=== PATIENT | male | born 1950 | race Caucasian/White ===

== ENCOUNTER → 2016-12-13 | Day surgery (SDC) | payer OTHER ==
--- NOTE | 2016-12-10 17:05 | GHP ---
[f rep st] PREOP HISTORY AND PHYSICAL DATE OF ADMISSION: 12/13/2016 Date of planned procedure is December 13, 2016. PLANNED PROCEDURE: A left total knee arthroplasty. HISTORY OF PRESENT ILLNESS: This patient is a 66-year-old male with slowly worsening bilateral knee pain and varus malalignment who has failed now conservative management, and decision had been made to proceed with total knee arthroplasties left followed by the right. PAST MEDICAL HISTORY: Gout, hypertension, diabetes, high cholesterol, sleep apnea. SOCIAL HISTORY: He does not smoke. Occasional alcohol use. , lives with others. REVIEW OF SYSTEMS: No chest pain. He does get shortness of breath with exertion. Otherwise review of systems unremarkable. PHYSICAL EXAM: VITAL SIGNS: Today in the office blood pressure is 146/88, heart rate is 88, respir atory rate is 18 on room air. HEENT: Normocephalic, atraumatic. Extraocular muscles intact. NECK : Supple. There is no lymphadenopathy. No JVD. CHEST: Clear to auscultation. CARDIOVASCULAR: Regular rate and rhythm. ABDOMEN: Obese, soft, nontender, nondistended. EXTREMITIES: Focusing on the knees. Varus alignment of both knees. He is tender to palpation along the medial joint lines. There is no effusion. He lacks about 5 degrees of full extension. Flexes to 120 degrees. 1+ Lac hman's with firm endpoints. Negative posterior drawers. Calves are soft. He has 1+ dorsalis pedis and posterior tibial pulses. IMAGING: X-rays of bilateral knees show severe tricompartment degenerative joint disease. ASSESSMENT: Tricompartment degenerative joint disease left greater than right. PLAN: Long discussion with the patient. He is really struggling with his knees. He is overweight. He cannot exercise. I think at this point, we do need to proceed with a total knee arthroplasty o n the left. Have him recover and then 8-12 weeks later proceed with the opposite side. He is in ag reement with that plan. The risks and benefits of the surgery including complications of anesthesia were discussed, postoperative blood clots, infection, postoperative stiffness. He understands thes e risks and wished to proceed. Will plan on surgery Tuesday at [facility]. /[id number]/MODL
[~2016-12-13] MED LIST: ACETAMINOPHEN 500 MG TAB PO PRN; BUPIVACAINE/EPI 0.5% 30 ML SDV ONE; CALCIUM CHLORIDE 1 GM/10 ML INJ ONE; DEXMEDETOMIDINE HCL 400 MCG in NS 100 ML IV SCH; DEXMEDETOMIDINE HCL IV SCH; LIDOCAINE 1% 2 ML INJ ID PRN; LR 1,000 ML IV ONE; LR 1,000 ML IV PRN; MIDAZOLAM 2 MG/2 ML VIAL IVP ONE; NALOXONE HCL 0.4 MG/ML INJ IVP PRN; NS IV SCH; ONDANSETRON 4 MG/2 ML VIAL IVP PRN; PROPOFOL 200 MG/20 ML VIAL ONE; ROPI/epiNEPH/KETOROLAC/morphINE JOINT COCKTAIL IU ONE; THROMBIN (BOVINE) 5,000 UNIT VIAL TP ONE; ceFAZolin 1 GM/5 ML SYR ONE; ceFAZolin 3 GM in D5W 100 ML IV ONE; fentaNYL 100 MCG/2 ML INJ IVP PRN; fentaNYL 100 MCG/2 ML INJ ONE
--- NOTE | 2016-12-13 05:59 | PDANEPAE ---
ANE History of Present Illness 66 yo male with bilateral DJD of the knees. Having left, then right, total knee arthroplasties. ANE Past Medical History Past Medical History: morbidly obese with BMI of 48.7 - Cardiovascular History Hx Hypertension: Yes Hx Arrhythmias: Yes Hx Chest Pain: No Hx Coronary Artery / Peripheral Vascular Disease: No Hx CHF / Valvular Disease: No Hx Palpitations: No Cardiovascular History Comment: pcp monitors bp meds. high chol. Had an episode of SVT during sleep study about 10 years ago. Asympotmatic. Placed on Diltiazem. No syncope/pre-syncope. - Pulmonary History Hx COPD: No Hx Asthma/Reactive Airway Disease: No Hx Recent Upper Respiratory Infection: No Hx Oxygen in Use at Home: No Hx Sleep Apnea: Yes Sleep Apnea Screening Result - Last Documented: Positive Pulmonary History Comment: tonja positive uses cpap- instructed pt to bring cpap to hospital - Neurologic History Hx Cerebrovascular Accident: No Hx Seizures: No Hx Dementia: No - Endocrine History Hx Diabetes: Yes Hypothyroid: Yes Endocrine History Comment: type 2. hypothyroidism - Renal History Hx Renal Disorders: Yes Renal History Comment: hx of kidney infections - Liver History Hx Hepatic Disorders: No - Neurological & Psychiatric Hx Hx Neurological and Psychiatric Disorders: No - Cancer History Hx Cancer: No - Congenital Disorder History Hx Congenital Disorders: No - GI History GERD: mild Hx Gastrointestinal Disorders: Yes Gastrointestinal History Comment: hx of colonoscopies x2. hx of reflux occ nothing consistently - Other Health History Other Health History: burn scar on left leg from hx of cellulitis - Chronic Pain History Chronic Pain: Yes (bilateral knees and lower back) - Surgical History Prior Surgeries: bilateral knee mcl tear repairs. colonoscopy x2. tonsillectomy as child ANE Review of Systems Review of systems is: negative Review of Systems: No URI/fever x2 weeks. No GERD symptoms in years. - Exercise capacity METS (RN): 4 METS - Systems Constitutional: Reports: no symptoms Cardiac: Reports: no symptoms Gastrointestinal: Reports: no symptoms ANE Patient History - Allergies Allergies/Adverse Reactions: No Known Allergies Allergy (Verified 12/01/16 11:40) - Home Medications Home medications: home medication list seen and reviewed Home Medications: Allopurinol [Allopurinol 300 MG (RX)] 300 mg PO DAILY 11/26/16 [Last Taken Unknown] Aspirin [Aspirin 81mg (*)] 81 mg PO DAILY 11/26/16 [Last Taken Unknown] Diltiazem [Cardizem 60 MG (*)] 60 mg PO DAILY 11/26/16 [Last Taken Unknown] Furosemide [Lasix 40 MG (*)] 40 mg PO Q2D 11/26/16 [Last Taken Unknown] Herbals/Supplements -Info Only 1 ea PO DAILY 11/26/16 [Last Taken Unknown] Levothyroxine [Synthroid 75 mcg (*)] 75 mcg PO HS 11/26/16 [Last Taken Unknown] Lisinopril [Zestril 10 mg (*)] 10 mg PO DAILY 11/26/16 [Last Taken Unknown] Lisinopril [Zestril 5 mg (*)] 5 mg PO DAILY 11/26/16 [Last Taken Unknown] Pioglitazone HCl [Actos] 45 mg PO DAILY 11/26/16 [Last Taken Unknown] Simvastatin [Zocor] 20 mg PO HS 11/26/16 [Last Taken Unknown] Spironolactone [Aldactone 25 MG (*)] 25 mg PO DAILY 11/26/16 [Last Taken Unknown ] metFORMIN HCL [Glucophage 1000 mg] 1,000 mg PO DAILY 11/26/16 [Last Taken Unknown] - NPO status NPO Status: no food or drink >8 hours - Anes Hx Anes Hx: no prior problems - Smoking Hx Smoking Status: Never smoked - Alcohol Use Alcohol Use: Rarely - Family Anes Hx Family Anes Hx: none Family Hx Anesthesia Complications: none ANE Labs/Vital Signs - Vital Signs Height: 175.26 cm Weight: 149.685 kg ANE Physical Exam - Airway Neck exam: FROM Mallampati Score: Class 3 - Pulmonary Pulmonary: no respiratory distress, other (distant breath sounds) - Cardiovascular Cardiovascular: regular rate and rhythym (barely audible heart sounds) - ASA Status ASA Status: III ANE Anesthesia Plan Anesthesia Plan: spinal (Anticipate difficult spinal placement due to body habitus. If unsuccessful, then GETA. IV sedation with spinal will also be challenging given TONJA. )
--- NOTE | 2016-12-13 06:46 | PDHPUP ---
History & Physical Update H&P update statement: This history and physical update is based on an assessment of the patient which was completed after admission or registration (within 24 hours), but prior to the surgery/procedure. H&P update: H&P reviewed & patient examined, no change in patient's condition since H&P completed
[2016-12-13 08:10] VITALS: TEMP 97.7
--- NOTE | 2016-12-13 08:13 | POSTANESTH ---
Post Anesthetic Evaluation Cardiovascular Status: Tx Hyper/Hypo-tension (BP low. Slight T-cy and IV fluids wide open.) Respiratory Status: Normal, Stable Level of Consciousness/Mental Status: Can Participate in Eval, Mildly Sleepy, Arousable Pain Control: Adequate, Prn Tx Ordered Nausea/Vomiting Control: Adequate, Prn Tx Ordered Notes: Pt still in atrial flutter in PACU. Tracing printed out for record. Lower extremities still immobile secondary to spinal block.
[2016-12-13 12:02] VITALS: O2SAT 94
[2016-12-13 12:48] VITALS: BP 94/50; PULSE 51; RESP 24
== END | disposition home or self-care (01) ==
LOC: UNDOADMIN 05:50 → FSGY 05:50 → F3N 05:50 → EDSTATUS 07:15 → UNDODISIN 12:15
PROVIDERS: ATTEND Orthopaedic Surgery
DX: M17.12 Unilateral primary osteoarthritis, left knee (principal); M25.562 Pain in left knee; Z53.09 Procedure and treatment not carried out because of other contraindication; I48.92 Unspecified atrial flutter; M10.9 Gout, unspecified; I10 Essential (primary) hypertension; E11.9 Type 2 diabetes mellitus without complications; E78.5 Hyperlipidemia, unspecified; G47.33 Obstructive sleep apnea (adult) (pediatric); E66.01 Morbid (severe) obesity due to excess calories; Z68.42 Body mass index [BMI] 45.0-49.9, adult; Z87.440 Personal history of urinary (tract) infections
CPT/HCPCS: J0171; J0690; J1885; J2704; J2795; J3010

== ENCOUNTER → 2017-01-14 | Outpatient (CLI) | payer OTHER | LOC: BHLMT 09:00 | PROVIDERS: ATTEND Internal Medicine Cardiovascular Disease | DX: R94.31 Abnormal electrocardiogram [ECG] [EKG] (principal); I48.92 Unspecified atrial flutter; E11.9 Type 2 diabetes mellitus without complications; I10 Essential (primary) hypertension; R06.02 Shortness of breath; E78.5 Hyperlipidemia, unspecified; G47.33 Obstructive sleep apnea (adult) (pediatric) | CPT/HCPCS: 93005-PO ==

== ENCOUNTER → 2017-01-18 | Outpatient (CLI) | payer OTHER ==
[~2017-01-18] MED LIST changes: -ACETAMINOPHEN 500 MG TAB PO PRN; -BUPIVACAINE/EPI 0.5% 30 ML SDV ONE; -CALCIUM CHLORIDE 1 GM/10 ML INJ ONE; -DEXMEDETOMIDINE HCL 400 MCG in NS 100 ML IV SCH; -DEXMEDETOMIDINE HCL IV SCH; -LIDOCAINE 1% 2 ML INJ ID PRN; -LR 1,000 ML IV ONE; -LR 1,000 ML IV PRN; -MIDAZOLAM 2 MG/2 ML VIAL IVP ONE; -NALOXONE HCL 0.4 MG/ML INJ IVP PRN; -NS IV SCH; -ONDANSETRON 4 MG/2 ML VIAL IVP PRN; -PROPOFOL 200 MG/20 ML VIAL ONE; +REGADENOSON 0.4 MG/5 ML SYR IVP ONE; -ROPI/epiNEPH/KETOROLAC/morphINE JOINT COCKTAIL IU ONE; -THROMBIN (BOVINE) 5,000 UNIT VIAL TP ONE; -ceFAZolin 1 GM/5 ML SYR ONE; -ceFAZolin 3 GM in D5W 100 ML IV ONE; -fentaNYL 100 MCG/2 ML INJ IVP PRN; -fentaNYL 100 MCG/2 ML INJ ONE
--- NOTE | 2017-01-18 18:09 | CPR ---
[f rep st] NONINVASIVE CARDIAC PROCEDURE REPORT PROCEDURE: Injection of Lexiscan, MPI study. SUPERVISING CLERICAL AND ADMINISTRATIVE WORKERS: Dr. Yong Posada. INDICATION FOR PROCEDURE: Increased shortness of breath, new onset of atrial fib/flutter. PRE: After obtaining informed consent, and ensuring patient n.p.o. status of caffeine for greater t you 12 hours, patient was placed on electrocardiogram. Initial EKG shows A-flutter with occasional premature ventricular contractions, probable left posterior fascicular block. The patient denies an y chest pain, shortness of breath, or symptoms suggesting of ischemia. Initial blood pressure of 118/82, saturating 93% on room air. INJECTION: Patient was given Lexiscan slow IV push followed by nuclear isotope. Patient noted init ially to be mildly tachycardic with heart rates up to 122 beats per minute, 1 minute post injection, with mild decreasing of blood pressure to 116/76. Patient did report some mild nausea, was given c affeinated beverage and symptoms soon subsided, with no other significant EKG changes noted. Within 5 minutes, the patient reports symptoms resolved, heart rate decreased back to 100 beats per minute , no EKG changes, final blood pressure of 122/78, saturation 95%. Patient reports nausea subsided. Vital signs stable. IMPRESSION: A 66-year-old male with new onset of atrial flutter and shortness of breath, being eval uated for possible cardiac ischemia, unable to do treadmill due to osteoarthritis of the knees, Elvira scan injection done, with no significant EKG changes. Vital signs are stable, the patient will karen rodrigez post stress MPI imaging in Nuclear Medicine at this time. /[id number]/MODL
== END ==
LOC: FIMAGING 13:48
PROVIDERS: ATTEND Nurse Practitioner Family
DX: I48.92 Unspecified atrial flutter (principal); R94.31 Abnormal electrocardiogram [ECG] [EKG]; E11.9 Type 2 diabetes mellitus without complications; R06.02 Shortness of breath; R93.1 Abnormal findings on diagnostic imaging of heart and coronary circulation
CPT/HCPCS: 78452; 93017; A9500; J2785

== ENCOUNTER 2017-01-21 09:43 | Day surgery (SDC) | payer OTHER ==
[2017-01-21] MEDS ORDERED: DIAZEPAM 5 MG TAB PO ONE (09:45)
[2017-01-21] MEDS ORDERED: NS 1,000 ML IV ONE (09:45)
[2017-01-21] MEDS ORDERED: FAMOTIDINE 20 MG TAB PO ONE (09:45)
[2017-01-21] MEDS ORDERED: diphenhydrAMINE 25 MG CAP PO ONE ×2 (09:45→10:20)
[2017-01-21] MEDS ORDERED: ASPIRIN EC 325 MG TAB PO ONE ×2 (09:45→10:21)
--- NOTE | 2017-01-21 10:10 | CPEKG ---
Heart Rate: 126 RR Interval: 476 QRSD Interval: 86 QT Interval: 336 QTC Interval: 487 QRS [place]: 126 T Wave [place]: 40 EKG Severity - ABNORMAL ECG - EKG Impression: ATRIAL FLUTTER WITH 2:1 AV BLOCK EKG Impression: PAIRED VENTRICULAR PREMATURE COMPLEXES EKG Impression: CONSIDER RIGHT VENTRICULAR HYPERTROPHY EKG Impression: BORDERLINE R WAVE PROGRESSION, ANTERIOR LEADS EKG Impression: BORDERLINE PROLONGED QT INTERVAL Electronically Signed By: Lowell Franz 24-Jan-2017 10:19:39
[2017-01-21] MEDS ORDERED: DIAZEPAM 5 MG TAB ONE (10:21)
[2017-01-21] MEDS ORDERED: FAMOTIDINE 20 MG TAB ONE (10:21)
[2017-01-21 10:29] LABS: % IMMATURE GRANULYOCYTES 0.3 % (0.0-1.1); ABSOLUTE IMMATURE GRANULOCYTES 0.03 10^3/uL (0.00-0.10); ADD DIFF? NO; ADD MORPH? NO; ADD SCAN? NO; ATYPICAL LYMPHOCYTE FLAG 0 (0-99); FRAGMENT RBC FLAG 0 (0-99); HEMATOCRIT 48.8 % (40.0-51.0); HEMOGLOBIN 16.4 g/dL (13.7-17.5); LEFT SHIFT FLG 0 (0-99); LIPEMIA HEMOLYSIS FLAG 80 (0-99); MEAN CELL HEMOGLOBIN 31.2 pg (27.9-34.1); MEAN CELL HEMOGLOBIN CONCENTR. 33.6 g/dL (32.4-36.7); MEAN PLATELET VOLUME 9.8 fL (8.7-11.7); PLATELET CLUMPS FLAG 10 (0-99); PLATELET COUNT 252 10^3/uL (150-400); RED BLOOD CELL COUNT 5.25 10^6/uL (4.40-6.38); RED CELL DISTRIBUTION WIDTH 14.1 % (11.5-15.2)
[2017-01-21 10:36] LABS: INR 1.06 (0.83-1.16); PROTIME(PATIENT) 13.7 SEC (12.0-15.0)
[2017-01-21 10:42] LABS: ANION GAP 14 mEq/L (8-16); CALCIUM 9.8 mg/dL (8.5-10.4); CARBON DIOXIDE 20 mEq/l (22-31); CHLORIDE 105 mEq/L (97-110); CHOLESTEROL 122 mg/dL (140-220); CHOLESTEROL/HDL RATIO 2.26 RATIO (1.00-4.97); CREATININE 1.1 mg/dL (0.7-1.3); GLOMERULAR FILTRATION RATE > 60; GLUCOSE 133 mg/dL (70-100); HIGH DENSITY LIPOPROTEIN 54 mg/dL (40-65); LDL/HDL RATIO 0.83 RATIO (1.00-3.64); LOW DENSITY LIPOPROTEIN 45 mg/dL (80-100); POTASSIUM 4.4 mEq/L (3.5-5.2); SODIUM 139 mEq/L (134-144); TRIGLYCERIDE 115 mg/dL (40-150); VERY LOW DENSITY LIPOPROTEINS 23 mg/dL (8-25)
[2017-01-21 10:43] LABS: MAGNESIUM 1.5 mg/dL (1.6-2.3); NON-HIGH DENSITY LIPOPROTEIN 68 mg/dL (90-129)
[2017-01-21] MEDS ORDERED: fentaNYL 100 MCG/2 ML INJ ONE (10:54)
[2017-01-21] MEDS ORDERED: IOPAMIDOL (ISOVUE-370) 150 ML BTL IV ONE ×2 (10:54→11:03)
[2017-01-21] MEDS ORDERED: MIDAZOLAM 2 MG/2 ML VIAL ONE (10:54)
[2017-01-21] MEDS ORDERED: LIDOCAINE 1% 300 MG/30 ML SDV ONE ×2 (10:54→11:03)
[2017-01-21] MEDS ORDERED: VERAPAMIL 5 MG/2 ML VIAL ONE (12:05)
[2017-01-21] MEDS ORDERED: HEPARIN 10,000 UNIT/10 ML MDV ONE (12:05)
--- NOTE | 2017-01-21 12:10 | ECHO ---
[id number] + + [address] : : [place] [address] : : [phone] + + Adult Echocardiographic Report + ---+ :Name: LIBBY MALDONADO RStudy Date: 01/21/2017 10:41 AM : : Hospital Admission Number: [id number] Location: [facility]: :: 1950 Gender: Male Height: 69 in : :Age: 66 yrs Race: WH Weight: 329 lb : :Reason For Study: Eval LV Fx : : BSA: 2.5 meters2 : :History: New onset Atrial Flutter, Pre Cath : + ---+ MMode/2D Measurements \T\ Calculations IVSd: 1.0 cm LVIDd: 4.8 cm FS: 25.3 % Ao root diam: 3.9 cm LVPWd: 1.3 cm LVIDs: 3.6 cm EDV(Teich): 106.5 ml ACS: 1.8 cm ESV(Teich): 53.3 ml EF(Teich): 49.9 % Normal Measurement Values: + + :LVIDd (3.5-5.7cm) IVSd (0.6-1.1cm) LVPWd (0.6-1.1cm) Aortic Root (2.0-3.7cm)Left Atrium (1.5-4.0cm): :LV Vol(d) (76-115ml) LV Vol(s) (29-48ml) Ejec Fraction (50-65%)PV Mitchel (0.6- 1.2m/s) TV Mitchel (0.4-1.0m/s) : :MV E Mitchel (0.8-1.0m/s)MV A Mitchel (0.3-1.0m/s)LVOT Mitchel (0.7-1.2m/s) Asc Ao Mitchel ( 0.9-1.8m/s) : + + Doppler Measurements \T\ Calculations MV E max mitchel: Ao V2 max: LV V1 max: PA V2 max: 80.0 cm/sec 107.2 cm/sec 57.8 cm/sec 82.8 cm/sec Ao max P.6 mmHg LV V1 max PG: PA max P.3 mmHg 2.7 mmHg Left Ventricle The left ventricle is normal in size. There is normal left ventricular wall thickness. Ejection Fraction = 50 to 55%. Right Ventricle The right ventricle is normal in size and function. Atria The left atrial size is normal. Right atrial size is normal. Mitral Valve The mitral valve is normal in structure and function. There is no mitral valve stenosis. There is no mitral regurgitation noted. Tricuspid Valve The tricuspid valve is normal in structure and function. No tricuspid regurgitation. Aortic Valve The aortic valve is not well visualized. There is no aortic stenosis. There is no aortic insufficiency. Pulmonic Valve The pulmonic valve is not well visualized. There is no pulmonic valvular regurgitation. Great Vessels The aortic root is normal size. Pericardium/Pleural There is no pericardial effusion. There is a fat pad seen. Conclusion A complete two-dimensional transthoracic echocardiogram was performed (2D, M-mode, Doppler and color flow Doppler). 1. This is a technically limited study recorded in an irregular rhythm. 2. The left ventricle is normal in size. The Ejection Fraction = 50 to 55%. 3. The mitral valve is normal in structure and function. 4. The aortic valve is not well visualized. There is no aortic stenosis. There is no aortic insufficiency. 5. The pulmonary artery pressure could not be adequately estimated. 6. No old studies for comparison. Final Reading Physician: Abel Mooney MD electronically signed on 01/21/2017 12:08 PM Ordering Physician: Abel Mooney Performed By: Georges Minor, CS
[2017-01-21] MEDS ORDERED: MAGNESIUM SULF 1 GM/DEXTROSE 100 ML BAG IV ONE (12:15)
--- NOTE | 2017-01-21 13:54 | CPIP ---
[f rep st] INVASIVE CARDIAC PROCEDURE DATE OF PROCEDURE: 01/21/2017 PROCEDURE: 1. Coronary angiography. 2. Left ventriculography. INDICATION: 1. Dyspnea on exertion, concerning for a class 3 anginal equivalent. 2. Abnormal nuclear stress test that is intermediate risk, demonstrating inferior infarct and arielle- infarct ischemia. ACCESS: The patient was prepped and draped in sterile fashion. 1% lidocaine was used to anesthetiz e the left radial region. A 6-Malian introducer sheath was placed selectively into the left radial artery via modified Seldinger technique. CORONARY ANGIOGRAPHY: A 6-Malian JL4 was advanced to the left main coronary artery and images obtai lucero. The left main coronary artery bifurcated into an LAD and circumflex coronary arteries. The le ft main coronary artery appeared normal. The left anterior descending coronary artery gave rise to 1 prominent diagonal branch. The left anterior descending coronary artery and its diagonal branch a ppeared normal. The circumflex coronary artery gave rise to 1 prominent OM branch as well as 4 smal ler OM branches. The circumflex coronary artery and its complement of OM branches appeared normal. A 6-Malian no-torque right catheter was advanced to the right coronary artery and images obtained. The right coronary artery is dominant. The right coronary artery appeared normal. LEFT VENTRICULOGRAPHY: A 6-Malian pigtail catheter was advanced in the left ventricle and images ob tained. Left ventricle was normal in size with mildly reduced systolic function. Estimated ejectio n fraction is 45%. COMPLICATIONS: None. CONCLUSIONS: 1. Normal coronary arteries. 2. Mildly reduced left ventricular systolic function with an estimated ejection fraction of 45%. 3. Plan is for medical management. /[id number]/MODL
== END 2017-01-21 16:35 | disposition home or self-care (01) ==
LOC: FCATH 09:43
PROVIDERS: ATTEND Internal Medicine Cardiovascular Disease
PROC: 4A023N7 Measurement of Cardiac Sampling and Pressure, Left Heart, Percutaneous Approach (ICD-10-PCS; principal; 2017-01-21)
PROC: B2111ZZ Fluoroscopy of Multiple Coronary Arteries using Low Osmolar Contrast (ICD-10-PCS; principal; 2017-01-21)
PROC: B2151ZZ Fluoroscopy of Left Heart using Low Osmolar Contrast (ICD-10-PCS; principal; 2017-01-21)
DX: I48.92 Unspecified atrial flutter (principal); R06.02 Shortness of breath; R94.39 Abnormal result of other cardiovascular function study; E66.01 Morbid (severe) obesity due to excess calories; I12.9 Hypertensive chronic kidney disease with stage 1 through stage 4 chronic kidney disease, or unspecified chronic kidney disease; E11.22 Type 2 diabetes mellitus with diabetic chronic kidney disease; N18.3 Chronic kidney disease, stage 3 (moderate); G47.33 Obstructive sleep apnea (adult) (pediatric); E03.9 Hypothyroidism, unspecified; E78.5 Hyperlipidemia, unspecified; Z68.42 Body mass index [BMI] 45.0-49.9, adult
CPT/HCPCS: 93005; 93306; 93458; C1769; J1644; J2250; J3010; J3475; Q9967

== ENCOUNTER → 2017-02-01 | Outpatient (CLI) | payer OTHER | LOC: BHFA 10:30 | PROVIDERS: ATTEND Internal Medicine Cardiovascular Disease | DX: I48.91 Unspecified atrial fibrillation (principal) ==

== ENCOUNTER 2017-03-01 07:15 | Observation (INO) | payer OTHER ==
[2017-03-01] MEDS ORDERED: NS 1,000 ML IV ONE (07:20)
[2017-03-01] MEDS ORDERED: BUPIVACAINE 0.5% 30 ML SDV ONE (07:22)
[2017-03-01] MEDS ORDERED: LIDOCAINE 1% 300 MG/30 ML SDV ONE (07:22)
[2017-03-01] MEDS ORDERED: ISOPROTERENOL HCL/D5W 0.2 MG/50 ML BAG IV ONE (07:22)
[2017-03-01] MEDS ORDERED: HEPARIN 10,000 UNIT/10 ML MDV ONE (07:22)
--- NOTE | 2017-03-01 07:38 | CPEKG ---
Heart Rate: 122 RR Interval: 492 QRSD Interval: 96 QT Interval: Invalid QTC Interval: Invalid QRS [place]: 84 T Wave [place]: 29 EKG Severity - ABNORMAL ECG - EKG Impression: ATRIAL FLUTTER EKG Impression: VENTRICULAR PREMATURE COMPLEX EKG Impression: BORDERLINE RIGHT AXIS DEVIATION Electronically Signed By: Jose Antonio Ruelas 01-Mar-2017 08:43:01
[2017-03-01 08:08] LABS: % IMMATURE GRANULYOCYTES 0.2 % (0.0-1.1); ABSOLUTE IMMATURE GRANULOCYTES 0.02 10^3/uL (0.00-0.10); ADD DIFF? NO; ADD MORPH? NO; ADD SCAN? NO; ATYPICAL LYMPHOCYTE FLAG 0 (0-99); FRAGMENT RBC FLAG 0 (0-99); HEMATOCRIT 46.9 % (40.0-51.0); HEMOGLOBIN 15.5 g/dL (13.7-17.5); LEFT SHIFT FLG 0 (0-99); LIPEMIA HEMOLYSIS FLAG 80 (0-99); MEAN CELL HEMOGLOBIN 31.3 pg (27.9-34.1); MEAN CELL VOLUME 94.7 fL (81.5-99.8); MEAN PLATELET VOLUME 9.3 fL (8.7-11.7); PLATELET CLUMPS FLAG 20 (0-99); PLATELET COUNT 257 10^3/uL (150-400); RED BLOOD CELL COUNT 4.95 10^6/uL (4.40-6.38)
--- NOTE | 2017-03-01 08:14 | PDANEPAE ---
ANE History of Present Illness h/o paroxysmal a.flutter presents for EP study/ablation ANE Past Medical History - Cardiovascular History Hx Hypertension: Yes Hx Arrhythmias: Yes Hx Chest Pain: No Hx Coronary Artery / Peripheral Vascular Disease: No Hx CHF / Valvular Disease: No Hx Palpitations: No Cardiovascular History Comment: pcp monitors bp meds. high chol. Had an episode of SVT during sleep study about 10 years ago. Asympotmatic. Placed on Diltiazem. No syncope/pre-syncope. - Pulmonary History Hx COPD: No Hx Asthma/Reactive Airway Disease: No Hx Recent Upper Respiratory Infection: No Hx Oxygen in Use at Home: No Hx Sleep Apnea: Yes Pulmonary History Comment: tonja positive uses cpap- instructed pt to bring cpap to hospital - Neurologic History Hx Cerebrovascular Accident: No Hx Seizures: No Hx Dementia: No - Endocrine History Hx Diabetes: Yes Obesity: yes, severe Endocrine History Comment: type 2. hypothyroidism - Renal History Hx Renal Disorders: Yes Renal History Comment: hx of kidney infections - Liver History Hx Hepatic Disorders: No - Neurological & Psychiatric Hx Hx Neurological and Psychiatric Disorders: No - Cancer History Hx Cancer: No - Congenital Disorder History Hx Congenital Disorders: No - GI History Hx Gastrointestinal Disorders: Yes Gastrointestinal History Comment: hx of colonoscopies x2. hx of reflux occ nothing consistently - Other Health History Other Health History: burn scar on left leg from hx of cellulitis - Chronic Pain History Chronic Pain: Yes (bilateral knees and lower back) - Surgical History Prior Surgeries: bilateral knee mcl tear repairs. colonoscopy x2. tonsillectomy as child ANE Review of Systems Review of systems is: negative Review of Systems: - Exercise capacity Exercise capacity: <4 METS ANE Patient History - Allergies Allergies/Adverse Reactions: No Known Allergies Allergy (Verified 12/01/16 11:40) - Home Medications Home medications: home medication list seen and reviewed Home Medications: Aspirin [Aspirin 81mg (*)] 81 mg PO DAILY 11/26/16 [Last Taken 02/28/17 08:00] Herbals/Supplements -Info Only 1 ea PO DAILY 11/26/16 [Last Taken 02/28/17 08:00 ] Lisinopril [Zestril 5 mg (*)] 5 mg PO DAILY 11/26/16 [Last Taken 02/28/17 08:00] Simvastatin [Zocor] 20 mg PO HS 11/26/16 [Last Taken 02/28/17 22:00] metFORMIN HCL [Glucophage 1000 mg] 1,500 mg PO DAILY 11/26/16 [Last Taken 19:00] Allopurinol [Allopurinol 300 MG (RX)] 300 mg PO DAILY 01/21/17 [Last Taken 02/28 08:00] Levothyroxine [Synthroid 175 mcg (*)] 175 mcg PO DAILY06 01/21/17 [Last Taken 08:00] Rivaroxaban [Xarelto 10mg (*)] 20 mg PO DAILY 01/21/17 [Last Taken 02/25/17 18: 00] Spironolactone [Aldactone 25 MG (*)] 25 mg PO DAILY 01/21/17 [Last Taken 08:00] Acetaminophen [Tylenol 325mg (*)] 650 mg PO BID 02/22/17 [Last Taken 02/28/17 21 :00] Diltiazem HCl [Diltiazem ER] 120 mg PO BID 02/22/17 [Last Taken 02/27/17 22:00] Furosemide [Lasix 20 MG (*)] 20 mg PO MWF 02/22/17 [Last Taken 03/01/17 07:50] - Smoking Hx Smoking Status: Never smoked - Family Anes Hx Family Hx Anesthesia Complications: none ANE Labs/Vital Signs - Labs Result Diagrams: 03/01/17 07:45 03/01/17 07:45 - Vital Signs Height: 175 cm Weight: 149.7 kg ANE Physical Exam - Airway Neck exam: FROM, increased neck circumference, short neck Mallampati Score: Class 2 Mouth exam: normal dental/mouth exam - Pulmonary Pulmonary: no respiratory distress - Cardiovascular Cardiovascular: irregularly irregular - ASA Status ASA Status: IV ANE Anesthesia Plan Anesthesia Plan: general endotracheal anesthesia Specialized Airway: video laryngoscope
[2017-03-01 08:16] LABS: INR 1.08 (0.83-1.16); PROTIME(PATIENT) 13.9 SEC (12.0-15.0)
[2017-03-01 08:17] LABS: APTT 25.2 SEC (23.0-38.0)
[2017-03-01] MEDS ORDERED: PROPOFOL 200 MG/20 ML VIAL ONE ×2 (08:22)
[2017-03-01] MEDS ORDERED: fentaNYL 100 MCG/2 ML INJ ONE (08:22)
[2017-03-01] MEDS ORDERED: ONDANSETRON 4 MG/2 ML VIAL ONE (08:23)
[2017-03-01] MEDS ORDERED: DEXAMETHASONE 4 MG/ML VIAL ONE (08:23)
[2017-03-01] MEDS ORDERED: SUGAMMADEX SODIUM 200 MG/2 ML VIAL IVP ONE (08:23)
[2017-03-01] MEDS ORDERED: ROCURONIUM 100 MG/10 ML VIAL ONE (08:23)
[2017-03-01 08:24] LABS: CALCIUM 9.6 mg/dL (8.5-10.4); CARBON DIOXIDE 20 mEq/l (22-31); CHLORIDE 108 mEq/L (97-110); CREATININE 1.1 mg/dL (0.7-1.3); GLOMERULAR FILTRATION RATE > 60; GLUCOSE 140 mg/dL (70-100); MAGNESIUM 1.7 mg/dL (1.6-2.3); SODIUM 141 mEq/L (134-144)
[2017-03-01 08:37] LABS: ANION GAP 13 mEq/L (8-16); POTASSIUM 4.4 mEq/L (3.5-5.2)
[2017-03-01] MEDS ORDERED: HEPARIN/DEXTROSE 25,000 UNIT/500 ML BAG ONE (09:33)
[2017-03-01] MEDS ORDERED: ALBUTEROL 3 ML DEYVIAL IH PRN (10:15)
[2017-03-01] MEDS ORDERED: ONDANSETRON 4 MG/2 ML VIAL IVP PRN (10:15)
[2017-03-01] MEDS ORDERED: PROMETHAZINE HCL 25 MG/ML INJ IVP PRN (10:15)
[2017-03-01] MEDS ORDERED: fentaNYL 100 MCG/2 ML INJ IVP PRN (10:15)
[2017-03-01] MEDS ORDERED: NALOXONE HCL 0.4 MG/ML INJ IVP PRN ×2 (10:15)
[2017-03-01] MEDS ORDERED: LR 500 ML IV PRN (10:15)
[2017-03-01] MEDS ORDERED: ACETAMINOPHEN 500 MG TAB PO PRN (10:15)
[2017-03-01] MEDS ORDERED: OXYCODONE/APAP 5/325 TAB PO PRN (10:15)
[2017-03-01] MEDS ORDERED: HYDROmorphONE/DILAUDID 1 MG/ML INJ IVP PRN (10:15)
[2017-03-01] MEDS ORDERED: DESFLURANE 240 ML BOTTLE IH ONE (10:17)
[2017-03-01] MEDS ORDERED: SUCCINYLCHOLINE CHLORIDE*ANESTHESIA ONLY*200 MG/10 ML SYR IVP ONE (10:20)
[2017-03-01] MEDS ORDERED: PHENYLEPHRINE HCL 100 MCG/ML SYR ONE (10:20)
--- NOTE | 2017-03-01 10:38 | EPPROC ---
Electrophysiology Procedure Note: ELECTROPHYSIOLOGIC STUDY AND CATHETER MEDIATED ABLATION FOR SUBEUSTACHIAN ISTHMUS DEPENDENT COUNTERCLOCKWISE ATRIAL FLUTTER: INDICATION: Recurrent atrial flutter, difficult to control with medical therapy Cardiomyopathy LVEF on HALEY today was 25% PROCEDURES PERFORMED: 71750-72 EP evaluation with RA/RV/LA pace/record, with arrhythmia induction 44152-03 EP evaluation with RA/RV pace record, insert/reposition catheter, with arrhythmia induction 61470 SVT ablation 50669 3D mapping Fluoroscopy Catheters & Anesthesia: The patient arrived in the Electrophysiology Laboratory in the fasting state. The right clavicular region, right groin, and left groin area were prepped and draped in the usual sterile manner. Anesthesiologist Dr. Aftab Menjivar administered general anesthesia. Appropriate non-invasive blood pressure, pulse oximetry and end-tidal CO2 monitoring was established. All catheters were placed percutaneously using the modified Seldinger technique , and advanced into position under fluoroscopic guidance. One #7 Cymro deflectable octapolar electrode catheter was advanced to the His-bundle position via the left femoral vein and then into the coronary sinus. One # 7 Cymro Halo catheter was inserted through the left femoral vein and was placed at the tricuspid annulus. Heparin was administered to keep ACT > 250 seconds. Programmed stimulation was performed from the right atrium, coronary sinus ( left atrium) and right ventricle. On arrival to the Electrophysiology Laboratory the patient was in atrial flutter , CL 275 ms . Entrainment mapping from lateral TA, septal TA, proximal CS and distal CS confirmed cavotricuspid isthmus dependent atrial flutter. In preparation for ablation of typical atrial flutter, a high-resolution 3D (3 dimensional) Carto electroanatomical map of the sub-Eustachian isthmus and right atrium was obtained during pacing of the posterolateral coronary sinus. For ablation of typical atrial flutter, one Agilis sheath was placed in the right atrium. A #8 Cymro deflectable quadrapolar electrode catheter (2mm-5mm- 2mm spacing) with 3.5 mm irrigated tip electrode and location sensor for the 24 Quan mapping system was inserted in the long sheath and advanced to the right atrium. Radiofrequency applications were applied between the tricuspid annulus at 0630 oclock as seen in the ANA view and the inferior vena cava. This achieved conduction block across the isthmus. Post ablation, a high-resolution electroanatomical map of the sub-Eustachian isthmus was obtained during pacing of the posterolateral coronary sinus. This confirmed conduction block across the sub-Eustachian isthmus. Bidirectional block was also confirmed by pacing. The catheters were removed. Long sheath was changed to short 10Fr sheath. The patient was transferred to the cardiovascular holding area in stable condition. Vascular access sheaths will be removed in the holding area. There were no apparent complications. CONCLUSIONS: 1. Cavotricuspid isthmus dependent counterclockwise atrial flutter. 2. Successful catheter mediated ablation of cavotricuspid isthmus achieving bi -directional conduction block across cavotricuspid isthmus. 3. No atrial arrhythmias inducible post ablation. 4. No apparent complications. Patient Problems: Problems Problem Status Onset Atrial flutter Acute
[2017-03-01] MEDS ORDERED: PROTAMINE SULFATE 50 MG/5 ML VIAL IVP ONE (10:46)
--- NOTE | 2017-03-01 10:57 | POSTANESTH ---
Post Anesthetic Evaluation Cardiovascular Status: Normal, Stable Respiratory Status: Normal, Stable Level of Consciousness/Mental Status: Can Participate in Eval Pain Control: Adequate, Prn Tx Ordered Nausea/Vomiting Control: Adequate, Prn Tx Ordered Complications Possibly Related to Anesthesia: None Noted
--- NOTE | 2017-03-01 11:00 | CPEKG ---
Heart Rate: 84 RR Interval: 714 P-R Interval: 272 QRSD Interval: 90 QT Interval: 380 QTC Interval: 450 P [place]: 39 QRS [place]: 28 T Wave [place]: 14 EKG Severity - ABNORMAL ECG - EKG Impression: SINUS RHYTHM EKG Impression: FIRST DEGREE AV BLOCK EKG Impression: LOW VOLTAGE IN FRONTAL LEADS Electronically Signed By: Jose Antonio Ruelas 01-Mar-2017 11:03:02
[2017-03-01] MEDS ORDERED: ATROPINE SULFATE 1 MG/10 ML SYR ONE (11:55)
[2017-03-01 12:06] LABS: CALCIUM 9.1 mg/dL (8.5-10.4); CARBON DIOXIDE 23 mEq/l (22-31); CHLORIDE 108 mEq/L (97-110); CREATININE 1.1 mg/dL (0.7-1.3); GLOMERULAR FILTRATION RATE > 60; GLUCOSE 144 mg/dL (70-100); SODIUM 143 mEq/L (134-144)
[2017-03-01 12:23] LABS: ANION GAP 12 mEq/L (8-16); MAGNESIUM 1.7 mg/dL (1.6-2.3); POTASSIUM 5.1 mEq/L (3.5-5.2)
--- NOTE | 2017-03-01 15:15 | ASMTCMCOM ---
CM Note CM Note Notes: 03/01/2017 Case Management Note: Reviewed chart. Pt admitted for cardiac procedure. No case management d/c needs identified d/t pt age, marital status, and lack of PT/OT evals ordered. Case Management d/c poc: home independent w/follow up as directed by MD when medically stable. Case Management available if needs change. Date Signed: 03/01/2017 03:15 PM Electronically Signed By:Alysha Santos RN
[2017-03-01] MEDS ORDERED: ATORVASTATIN CALCIUM 10 MG TAB PO SCH (21:00)
[2017-03-01] MEDS: ENOXAPARIN 100 MG/ML SYR SC SCH (21:51)
[2017-03-02] MEDS ORDERED: ACETAMINOPHEN 325 MG TAB PO PRN (00:45)
[2017-03-02 04:45] VITALS: TEMP 98.2
[2017-03-02 05:36] LABS: % IMMATURE GRANULYOCYTES 0.5 % (0.0-1.1); ABSOLUTE IMMATURE GRANULOCYTES 0.07 10^3/uL (0.00-0.10); ADD DIFF? NO; ADD MORPH? NO; ADD SCAN? NO; ATYPICAL LYMPHOCYTE FLAG 0 (0-99); FRAGMENT RBC FLAG 0 (0-99); HEMATOCRIT 43.1 % (40.0-51.0); HEMOGLOBIN 14.3 g/dL (13.7-17.5); LEFT SHIFT FLG 0 (0-99); LIPEMIA HEMOLYSIS FLAG 80 (0-99); MEAN CELL HEMOGLOBIN 31.6 pg (27.9-34.1); MEAN CELL HEMOGLOBIN CONCENTR. 33.2 g/dL (32.4-36.7); MEAN CELL VOLUME 95.4 fL (81.5-99.8); MEAN PLATELET VOLUME 9.6 fL (8.7-11.7); PLATELET CLUMPS FLAG 0 (0-99); PLATELET COUNT 264 10^3/uL (150-400); RED BLOOD CELL COUNT 4.52 10^6/uL (4.40-6.38); RED CELL DISTRIBUTION WIDTH 13.8 % (11.5-15.2)
[2017-03-02 05:47] LABS: ANION GAP 11 mEq/L (8-16); CALCIUM 9.4 mg/dL (8.5-10.4); CARBON DIOXIDE 20 mEq/l (22-31); CHLORIDE 105 mEq/L (97-110); CREATININE 1.1 mg/dL (0.7-1.3); GLOMERULAR FILTRATION RATE > 60; GLUCOSE 128 mg/dL (70-100); SODIUM 136 mEq/L (134-144)
[2017-03-02 05:56] LABS: INR 1.12 (0.83-1.16); PROTIME(PATIENT) 14.3 SEC (12.0-15.0)
[2017-03-02] MEDS ORDERED: LEVOTHYROXINE 175 MCG TAB PO SCH (06:00)
[2017-03-02] MEDS: ENOXAPARIN 100 MG/ML SYR SC SCH (06:02)
[2017-03-02 06:12] LABS: CREATINE KINASE-MB FRACTION 1.19 ng/mL (0.00-3.19)
[2017-03-02] MEDS ORDERED: FUROSEMIDE 20 MG TAB PO SCH (08:00)
--- NOTE | 2017-03-02 08:41 | CPEKG ---
Heart Rate: 77 RR Interval: 779 P-R Interval: 240 QRSD Interval: 90 QT Interval: 368 QTC Interval: 417 P [place]: 19 QRS [place]: 118 T Wave [place]: -12 EKG Severity - ABNORMAL ECG - EKG Impression: SINUS ARRHYTHMIA, RATE 66-91 EKG Impression: FIRST DEGREE AV BLOCK EKG Impression: BORDERLINE T ABNORMALITIES, INFERIOR LEADS Electronically Signed By: Jose Antonio Ruelas 02-Mar-2017 11:21:53
[2017-03-02] MEDS ORDERED: LISINOPRIL 5 MG TAB PO SCH (09:00)
[2017-03-02] MEDS ORDERED: SPIRONOLACTONE 25 MG TAB PO SCH (09:00)
[2017-03-02] MEDS ORDERED: metFORMIN HCL 500 MG TAB PO SCH (09:00)
[2017-03-02] MEDS ORDERED: ALLOPURINOL 300 MG TAB PO SCH (09:00)
[2017-03-02] MEDS ORDERED: ASPIRIN 81 MG CHEWABLE TAB PO SCH (09:00)
--- NOTE | 2017-03-02 11:08 | ECHO ---
[email or web address] [place] [id number] Main: [phone] Fax: Transthoracic Echocardiogram Name: LIBBY MALDONADO MR#: [id number] Study Date: 03/02/2017 Study Time: 07:45 AM Date of : 1950 Age: 67 year(s) Height: 175.3 cm (69 in.) Weight: 149.69 kg (330 lb.) BSA: 2.56 m2 Gender: Male Examination: Echo Indication: F/U post EP study Image Quality: Contrast: Requested by: Jose Antonio Ruelas BP: 102 mmHg/64 mmHg Heart Rate: Rhythm: Indication: F/U post EP study Procedure Staff Mop Maker: Elizabeth Goldberg Physician: Jose Antonio Ruelas Requesting Provider: Conclusions: Normal size left ventricle. The ejection fraction is estimated to be 60-65 %. LVEF has improved since HALEY yesterday from 25% to 65%. TDS. Measurements: Chambers Valvular Assessment AV/MV Valvular Assessment TV/PV Normal Normal Normal Name Value Range Name Value Range Name Value Range LVDd (2D): 5.9 cm (4.2 cm-5.9 AV Vmax: 0.90 m/s (1 m/s-1.7 cm) m/s) EF Range: 60-65 % AV maxP mmHg ( - ) MV E Vmax: 0.65 m/s ( - ) MV A Vmax: 0.38 m/s ( - ) MV E/A: 1.71 ( - ) Continued Measurements: Chambers Valvular Assessment AV/MV Name Value Name Value LADs: 4.1 cm MV E' Septal: 0.06 m/s MV E/E' Septal: 11.10 Findings: Left Ventricle: Normal size left ventricle. The ejection fraction is estimated to be 60-65 %. LVEF has improved since HALEY yesterday from 25% to 65%. TDS. Patient: LIBBY MALDONADO Study Date: 03/02/2017 Page 1 of 2 07:45 AM Right Ventricle: Normal size right ventricle. Left Atrium: The left atrium is normal in size. Right Atrium: The right atrium is normal in size. Mitral Valve: The mitral valve is normal in appearance. Aortic Valve: Aortic valve is not well visualized. AV velocities are within normal limits. Tricuspid Valve: Tricuspid valve not visualized. Pulmonic Valve: Pulmonary valve not well visualized. Pericardium: No pericardial effusion. There is pericardial fat. (No Signature Object) Patient: LIBBY MALDONADO Study Date: 03/02/2017 Page 2 of 2 07:45 AM [id number]
--- NOTE | 2017-03-02 11:08 | ECHO ---
[email or web address] [place] [id number] Main: [phone] Fax: Transesophageal Echocardiography Name: LIBBY MALDONADO MR#: [id number] Study Date: 03/01/2017 Study Time: 08:52 AM Date of : 1950 Age: 67 year(s) Height: ( ) Weight: ( ) BSA: Gender: Male Examination: HALEY Indication: Atrial flutter/Eval for thrombus Image Quality: Contrast: Requested by: Jose Antonio Ruelas Heart Rate: Rhythm: BP: / Procedure Staff Residential Plumber: Reading Physician: Jose Antonio Ruelas Requesting Provider: HALEY Exam Details Measurements: Chambers Valvular Assessment AV/MV Valvular Assessment TV/PV Normal Normal Normal Name Value Range Name Value Range Name Value Range Visual EF: 25 % Additional Measurements: Findings: Left Ventricle: The ejection fraction is visually estimated to be 25 %. Left Atrium: An agitated saline study was performed and was negative for intracardiac shunting. Left Atrial Appendage: No thrombus in left appendage. Mitral Valve: Mild mitral valve regurgitation is present. Aortic Valve: The aortic valve is tri-leaflet. There is no aortic valve regurgitation. Tricuspid Valve: Mild tricuspid regurgitation is present. Pericardium: Patient: LIBBY MALDONADO Study Date: 03/01/2017 Page 1 of 2 08:52 AM Trivial anterior pericardial effusion. There is pericardial fat. l1n (No Signature Object) Patient: LIBBY MALDONADO Study Date: 03/01/2017 Page 2 of 2 08:52 AM [id number]
[2017-03-02 11:12] VITALS: BP 106/69; PULSE 75; RESP 18; O2SAT 92
[2017-03-02] MEDS ORDERED: RIVAROXABAN 20 MG TAB PO SCH (20:00)
--- NOTE | 2017-03-02 21:46 | GDS ---
[f rep st] DISCHARGE SUMMARY ADMIT DIAGNOSES: 1. Atrial flutter. 2. Planned electrophysiology study with possible ablation. 3. Bradycardia, medication induced. 4. Hypertension. DISCHARGE DIAGNOSES: 1. Status post atrial flutter ablation with no complications. 2. Atrial flutter. 3. Bradycardia. 4. Hypertension. COURSE OF HOSPITALIZATION: This gentleman is followed closely at [facility] by Julian Padilla NP. He was referred to Dr. Ruelas for evaluation of bradycardia occurring during anesthesia induction for knee surgery, which then had to be canceled. At that time, he was noted to have atrial flutter during the procedure and in the recovery period once he had the surgery done. He did have further cardiac evaluation with myocardial perfusion stress testing and subsequent coronary angiography, showing normal coronary arteries and ejection fraction of 45%. Dr. Ruelas did evaluate him in clinic, with recommendations for further evaluation with electrophysiology study and possible ablation. He had been on diltiazem and wore a Holter monitor that did show a 4.3 second pause. The dose of diltiazem was reduced to 120 mg twice daily, and he has done well since that time. He was taken to the EP lab by Dr. Jose Antonio Ruelas on 03/01/2017 for HALEY/cardioversion, followed by electrophysiology study and ablation for atrial flutter. He did well with the procedure. There were no complications, and he was returned to his room for further observation where he has done well. He has been up ambulating with no groin pain or bleeding. He is not aware of palpitations. His surveillance monitor has shown frequent PVCs with sinus rhythm. At this time, he currently is stable for discharge. ALLERGIES: He has no known allergies. MEDICATIONS: He will go home on Glucophage 1500 mg daily, herbal supplements daily, aspirin 81 mg daily, Zocor 20 mg at bedtime, lisinopril 5 mg daily, Xarelto 20 mg daily, Synthroid 175 mcg daily, Aldactone 25 mg daily, allopurinol 300 mg daily, Tylenol 325-650 mg twice daily, furosemide 20 mg Tuesday, Tuesday, Tuesday. Diltiazem 120 mg was discontinued. PHYSICAL EXAMINATION: VITAL SIGNS: On day of discharge, blood pressure 106/69 , heart rate 75, and regular with normal sinus rhythm. Temperature 36.8 Celsius. Oxygen saturation 92%. HEART: Rate regular with skips. No murmurs, rubs, or gallops. LUNGS: Sounds are clear to auscultation. No wheezes, rales , or rhonchi. EXTREMITIES: Groin sites bilateral are intact with no bleeding, induration or pain. Peripheral pulses 2+ bilaterally. No edema. REPORT OF PROCEDURE: 03/01/[address] Jose Antonio Ruelas. HALEY showed ejection fraction estimated at 25%. Agitated saline study was negative for intracardiac shunting. No thrombus of the left appendage. Mitral valve regurgitation is present. Aortic valve is trileaflet. No air aortic valve regurgitation. Mild tricuspid regurgitation is present. ELECTROPHYSIOLOGY PROCEDURE: Electrophysiology study and catheter mediated ablation for subeustachian isthmus dependent counterclockwise atrial flutter. Indication: Recurrent atrial flutter, difficult to manage on medical therapy. Cardiomyopathy with left ventricular ejection fraction on HALEY 25%. PROCEDURES: 1. Cavotricuspid isthmus dependent counterclockwise atrial flutter. 2. Successful catheter mediated ablation of cavotricuspid isthmus achieving bidirectional conduction block across cavotricuspid isthmus. 3. No atrial arrhythmias inducible post ablation. 4. No apparent complications. Echocardiogram on 03/02/2017 showed: 1. Normal size left ventricle. #2 ejection fraction is now estimated at 60%-65 %. LVEF has improved since HALEY yesterday from 25% to 65%. Electrocardiogram 03/02/2017: Sinus arrhythmia with 1st degree AV block, rate 66-91. TELEMETRY MONITORING: Sinus rhythm with frequent PVCs, with rate 77. DISCHARGE PLAN: 1. He will go home on a cardiac low-fat diet. He will resume his metformin today. He did get Lovenox this morning. He will start Xarelto 20 mg this evening. 2. Diltiazem ER 120 mg has been discontinued. 3. Groin restrictions for 7 days. No lifting, pushing, pulling greater than 10 pounds. No tub of warm water bath. It is okay to shower. 4. Hold firm pressure to groin site should cough or sneeze or for bearing down of any kind. 5. Should groin sites bleed, hold firm pressure to site and go directly to the nearest emergency room. 6. Follow up with Dr. Ruelas in 1 month. This is scheduled for March 31 at 3: 00 p.m. at [facility] in [place]. 7. Should he have other concerns or questions, he is asked to call [facility]. At this time, he currently is stable for discharge. /[id number]/MODL MTDD
--- NOTE | 2017-03-03 08:43 | ASDISCHSUM ---
Discharge Information Plan Status:Home with No Needs Medically Cleared to Leave:03/02/2017 Discharge Date:03/02/2017 02:00 PM CM D/C Disposition: ADT D/C Disposition:Home, Routine, Self-Care Projected Discharge Date:03/02/2017 12:00 AM Transportation at D/C: Discharge Delay Reason: Follow-Up Date:03/02/2017 12:00 AM Discharge Slot: Final Diagnosis: Placement Information Patient Contact Information Contact Name:SHERLYN Relationship: Address:[address] City:[place] Alternate Phone: State/Zip Code:[place] [address] Email: Financial Information Financial Class: Primary Plan Desc:MEDICARE OUTPATIENT Primary Plan Number:[id number] Secondary Plan Desc:FLAVIA PPO Secondary Plan Number:[id number] Assessment Information [facility] CM Progress Note CM Note CM Note Notes: 03/01/2017 Case Management Note: Reviewed chart. Pt admitted for cardiac procedure. No case management d/c needs identified d/t pt age, marital status, and lack of PT/OT evals ordered. Case Management d/c poc: home independent w/follow up as directed by MD when medically stable. Case Management available if needs change. Date Signed: 03/01/2017 03:15 PM Electronically Signed By:Alysha Santos RN Intervention Information Intervention Type:*CARIDAD-Signed Date of Service:03/02/2017 09:23 AM Patient Type:Observation Staff Member:Estrella Vicente Hours: Discipline: Severity: Comment:
== END 2017-03-02 14:00 | disposition home or self-care (01) ==
LOC: FCATH 07:15 → F2W 10:32
PROVIDERS: ADMIT Internal Medicine Cardiovascular Disease; ATTEND Internal Medicine Cardiovascular Disease
PROC: 02563ZZ Destruction of Right Atrium, Percutaneous Approach (ICD-10-PCS; principal; 2017-03-01)
PROC: 5A1223Z Performance of Cardiac Pacing, Continuous (ICD-10-PCS; principal; 2017-03-01)
PROC: 02H73MZ Insertion of Cardiac Lead into Left Atrium, Percutaneous Approach (ICD-10-PCS; principal; 2017-03-01)
PROC: 02573ZZ Destruction of Left Atrium, Percutaneous Approach (ICD-10-PCS; principal; 2017-03-01)
PROC: B2161ZZ Fluoroscopy of Right and Left Heart using Low Osmolar Contrast (ICD-10-PCS; principal; 2017-03-01)
PROC: 4A023FZ Measurement of Cardiac Rhythm, Percutaneous Approach (ICD-10-PCS; principal; 2017-03-01)
PROC: 025K3ZZ Destruction of Right Ventricle, Percutaneous Approach (ICD-10-PCS; principal; 2017-03-01)
PROC: 02K83ZZ Map Conduction Mechanism, Percutaneous Approach (ICD-10-PCS; principal; 2017-03-01)
DX: I48.92 Unspecified atrial flutter (principal); R00.1 Bradycardia, unspecified; I34.0 Nonrheumatic mitral (valve) insufficiency; I36.1 Nonrheumatic tricuspid (valve) insufficiency; I12.9 Hypertensive chronic kidney disease with stage 1 through stage 4 chronic kidney disease, or unspecified chronic kidney disease; N18.3 Chronic kidney disease, stage 3 (moderate); E11.22 Type 2 diabetes mellitus with diabetic chronic kidney disease; E03.9 Hypothyroidism, unspecified; G47.33 Obstructive sleep apnea (adult) (pediatric)
CPT/HCPCS: 93005; 93306; 93312; 93613; 93621; 93653; C1731; C1732; C1766; J0330; J1100; J1644; J1650; J2370; J2405; J2704; J3010; J0461; J2720

== ENCOUNTER 2017-04-25 06:31 | Inpatient (IN) | payer OTHER ==
--- NOTE | 2017-04-24 12:05 | GHP ---
[f rep st] PREOP HISTORY AND PHYSICAL DATE OF ADMISSION: 04/25/2017 Date of planned surgery: 04/25/2017 PREOPERATIVE DIAGNOSIS: Osteoarthritis, left knee. PLANNED PROCEDURE: Left total knee arthroplasty. HISTORY OF PRESENT ILLNESS: The patient is a 67-year-old male, who has had progressively worsening b ilateral knee pain. He was initially brought to the OR for a left total knee arthroplasty several mo nths ago. Just after induction, he had bradycardia, and we canceled the surgery. He then had follow up with Dr. Ruelas in cardiology. He has now been cleared for surgery. He is on Xarelto, and he has un dergone a cardiac ablation. PRIOR MEDICAL HISTORY: Obesity, arthritis, diabetes, high cholesterol, sleep apnea. SURGICAL HISTORY: None. MEDICATIONS: Xarelto, allopurinol, furosemide, levothyroxine, lisinopril, metformin, simvastatin, sp ironolactone, tumeric. ALLERGIES: No known drug allergies. SOCIAL HISTORY: He is . Does not smoke. Reports occasional alcohol use. REVIEW OF SYSTEMS: Currently, no shortness of breath or chest pain. Otherwise, review of systems un remarkable. PHYSICAL EXAMINATION: VITAL SIGNS: He is 5 feet 9 inches tall and weighs 225 pounds. Blood pressur e is 113/77, heart rate 68, and respiratory rate is 16 on room air. GENERAL: Alert and oriented x3. HEENT: Normocephalic, atraumatic. Extraocular muscles intact. NECK: Supple. There is no lympha denopathy. No JVD. CHEST: Clear to auscultation. CARDIOVASCULAR: Regular rate and rhythm. ABDOM EN: Obese, soft, nontender, nondistended. No hepatosplenomegaly. EXTREMITIES: Exam shows varus al ignment of the left knee. He lacks 10 degrees of full extension. Flexes to 120 degrees. The knee i s stable to varus and valgus stress testing. 1+ Treasure, with a firm endpoint. Negative posterior d rawer. Calf is soft. 1+ dorsalis pedis and posterior tibial pulses. He has 5/5 ankle dorsiflexion and plantar flexion strength. RADIOLOGY FINDINGS: X-rays show severe tricompartmental degenerative joint disease of both knees. ASSESSMENT: Severe tricompartmental degenerative joint disease, bilateral knees. PLAN: I recommend proceeding with a left total knee arthroplasty. Risks and benefits including post operative stiffness were discussed, as well as blood clots. Our plan will be to stop the Xarelto 2 d ays before. He will restart the Xarelto 20 mg daily after on postoperative day #1. Once he has monica javon from the left knee, we will plan on proceeding with the right total knee arthroplasty. His pre operative paperwork was completed, and we will plan on surgery Tuesday at [facility]. /[id number]/MODL
[~2017-04-25 06:31] MED LIST changes: +CALCIUM CHLORIDE 1 GM/10 ML INJ ONE; -REGADENOSON 0.4 MG/5 ML SYR IVP ONE; +THROMBIN (BOVINE) 5,000 UNIT VIAL TP ONE; +ceFAZolin 1 GM/5 ML SYR ONE; +ceFAZolin 3 GM in D5W 100 ML IV ONE
[2017-04-25] MEDS ORDERED: LR 1,000 ML IV ONE (07:01)
[2017-04-25] MEDS ORDERED: LIDOCAINE 1% 2 ML INJ ONE (07:42)
[2017-04-25] MEDS ORDERED: MIDAZOLAM 2 MG/2 ML VIAL ONE (08:04)
[2017-04-25] MEDS ORDERED: MIDAZOLAM 2 MG/2 ML VIAL IVP ONE (08:11)
--- NOTE | 2017-04-25 08:11 | PDANEPAE ---
ANE History of Present Illness 67 yo for tka s/p ablation for aflutter PAOLO NIDDM HTN ANE Past Medical History - Cardiovascular History Hx Hypertension: Yes Hx Arrhythmias: Yes Hx Chest Pain: No Hx Coronary Artery / Peripheral Vascular Disease: No Hx CHF / Valvular Disease: No Hx Palpitations: No Cardiovascular History Comment: pcp monitors bp meds. high chol. Had an episode of SVT during sleep study about 10 years ago. Asympotmatic. No syncope/ pre-syncope. - Pulmonary History Hx COPD: No Hx Asthma/Reactive Airway Disease: No Hx Recent Upper Respiratory Infection: No Hx Oxygen in Use at Home: No Hx Sleep Apnea: Yes Sleep Apnea Screening Result - Last Documented: Positive Pulmonary History Comment: paolo positive uses cpap- instructed pt to bring cpap to hospital - Neurologic History Hx Cerebrovascular Accident: No Hx Seizures: No Hx Dementia: No - Endocrine History Hx Diabetes: Yes Endocrine History Comment: type 2. hypothyroidism - Renal History Hx Renal Disorders: Yes Renal History Comment: hx of kidney infections - Liver History Hx Hepatic Disorders: No - Neurological & Psychiatric Hx Hx Neurological and Psychiatric Disorders: No - Cancer History Hx Cancer: No - Congenital Disorder History Hx Congenital Disorders: No - GI History Hx Gastrointestinal Disorders: No Gastrointestinal History Comment: hx of colonoscopies x2. hx of reflux occ nothing consistently - Other Health History Other Health History: OA L knee. burn scar on right leg from hx of cellulitis - Chronic Pain History Chronic Pain: Yes (bilateral knees and lower back) - Surgical History Prior Surgeries: ablation (Dr Ruelas). bilateral knee mcl tear repairs. colonoscopy x2. tonsillectomy as child ANE Review of Systems Review of Systems: - Exercise capacity METS (RN): 4 METS ANE Patient History - Allergies Allergies/Adverse Reactions: No Known Allergies Allergy (Verified 04/13/17 15:31) - Home Medications Home Medications: Aspirin [Aspirin 81mg (*)] 81 mg PO DAILY 11/26/16 [Last Taken 04/14/17] Herbals/Supplements -Info Only 1 ea PO DAILY 11/26/16 [Last Taken 04/14/17] Lisinopril [Zestril 5 mg (*)] 5 mg PO DAILY 11/26/16 [Last Taken 04/24/17 12:00] Simvastatin [Zocor] 20 mg PO HS 11/26/16 [Last Taken 04/24/17 21:00] metFORMIN HCL [Glucophage 1000 mg] 1,500 mg PO DAILY 11/26/16 [Last Taken 12:00] Allopurinol [Allopurinol 300 MG (RX)] 300 mg PO DAILY 01/21/17 [Last Taken 04/24 12:00] Levothyroxine [Synthroid 175 mcg (*)] 175 mcg PO DAILY06 01/21/17 [Last Taken 21:00] Rivaroxaban [Xarelto 10mg (*)] 20 mg PO DAILY 01/21/17 [Last Taken 04/15/17] Spironolactone [Aldactone 25 MG (*)] 25 mg PO DAILY 01/21/17 [Last Taken 12:00] Acetaminophen [Tylenol 325mg (*)] 650 mg PO BID 02/22/17 [Last Taken 02/28/17 21 :00] Furosemide [Lasix] 40 mg PO MWF 04/22/17 [Last Taken 04/22/17] - NPO status NPO Status: no food or drink >8 hours NPO Since - Liquids (Date): 04/24/17 NPO Since - Liquids (Time): 22:00 NPO Since - Solids (Date): 04/24/17 NPO Since - Solids (Time): 22:00 - Smoking Hx Smoking Status: Never smoked - Family Anes Hx Family Hx Anesthesia Complications: none ANE Labs/Vital Signs - Vital Signs Blood Pressure: 115/56 Heart Rate: 73 Respiratory Rate: 17 O2 Sat (%): 92 Height: 5 ft 10 in Weight: 149.685 kg ANE Physical Exam - Airway Neck exam: FROM Mallampati Score: Class 2 Mouth exam: normal dental/mouth exam - Pulmonary Pulmonary: no respiratory distress - Cardiovascular Cardiovascular: regular rate and rhythym - ASA Status ASA Status: IV ANE Anesthesia Plan Anesthesia Plan: spinal Regional Anesthesia: adductor canal FNB
[2017-04-25] MEDS ORDERED: fentaNYL 100 MCG/2 ML INJ ONE (08:18)
[2017-04-25] MEDS ORDERED: PROPOFOL/EMULSION 500 MG/50 ML BOTTLE IV ONE ×2 (08:26→09:25)
[2017-04-25] MEDS ORDERED: BUPIVACAINE 0.5% 30 ML SDV ONE (08:30)
[2017-04-25] MEDS ORDERED: ROPIVACAINE HCL 150 MG/30 ML INJ ONE (09:43)
[2017-04-25] MEDS ORDERED: ALBUTEROL 3 ML DEYVIAL IH PRN (09:49)
[2017-04-25] MEDS ORDERED: fentaNYL 100 MCG/2 ML INJ IVP PRN (09:49)
[2017-04-25] MEDS ORDERED: NALOXONE HCL 0.4 MG/ML INJ IVP PRN (09:49)
[2017-04-25] MEDS ORDERED: ONDANSETRON 4 MG/2 ML VIAL IVP PRN (09:49)
[2017-04-25] MEDS ORDERED: HYDROmorphONE/DILAUDID 1 MG/ML INJ IVP PRN (09:49)
[2017-04-25] MEDS ORDERED: ONDANSETRON DISINTEGRATING 4 MG TAB PO PRN (10:11)
[2017-04-25] MEDS ORDERED: TEMAZEPAM 15 MG CAP PO PRN (10:11)
[2017-04-25] MEDS ORDERED: METOCLOPRAMIDE 10 MG/2 ML VIAL IVP PRN (10:11)
[2017-04-25] MEDS ORDERED: PROMETHAZINE HCL 25 MG SUPPR PR PRN (10:11)
[2017-04-25] MEDS ORDERED: CYCLOBENZAPRINE 10 MG TAB PO PRN (10:11)
[2017-04-25] MEDS ORDERED: MAGNESIUM HYDROXIDE 30 ML UDCUP PO PRN (10:11)
[2017-04-25] MEDS ORDERED: POLYETHYLENE GLYCOL 3350 17 GM PKT PO PRN (10:11)
[2017-04-25] MEDS ORDERED: diphenhydrAMINE 25 MG CAP PO PRN (10:11)
[2017-04-25] MEDS ORDERED: PROMETHAZINE HCL 25 MG/ML INJ IVP PRN (10:11)
[2017-04-25] MEDS ORDERED: BISACODYL 10 MG SUPP PR PRN (10:11)
[2017-04-25] MEDS ORDERED: LACTULOSE 20 GM/30 ML UDCUP PO PRN (10:11)
[2017-04-25] MEDS ORDERED: DIPHENOXYLATE/ATROPINE LOMOTIL 1 TAB PO PRN (10:11)
--- NOTE | 2017-04-25 10:11 | POSTOPPROG ---
Post Op Note Date of Operation: 04/25/17 Surgeon: Landon Enrique Marble Chip Terrazzo Worker: tamia Anesthesiologist: norris Anesthesia: Spinal Pre-op Diagnosis: OA LT knee Post-op Diagnosis: same Procedure: TKA LT Findings: severe tricompartmentt OA Inf/Abcess present in the surg proc area at time of surgery?: No EBL: 50-100 Complications: none
--- NOTE | 2017-04-25 10:22 | POSTANESTH ---
Post Anesthetic Evaluation Cardiovascular Status: Normal, Stable Respiratory Status: Similar to Pre-op Cond. Level of Consciousness/Mental Status: Can Participate in Eval Pain Control: Adequate, Prn Tx Ordered Nausea/Vomiting Control: Adequate, Prn Tx Ordered Complications Possibly Related to Anesthesia: None Noted
[2017-04-25] MEDS ORDERED: KETOROLAC 30 MG/1 ML SDV ONE (10:41)
[2017-04-25] MEDS: KETOROLAC 30 MG/1 ML SDV IVP PRN ×2 (10:42→20:21)
[2017-04-25] MEDS: LR 1,000 ML IV SCH ×2 (12:02→20:22)
[2017-04-25] MEDS: ACETAMINOPHEN 325 MG TAB PO SCH ×2 (12:11→18:26)
[2017-04-25] MEDS: metFORMIN HCL 500 MG TAB PO SCH (12:12)
[2017-04-25] MEDS: oxyCODONE IR 5 MG TAB PO PRN ×3 (12:15→22:03)
[2017-04-25] MEDS: ceFAZolin 2 GM/DEXTROSE 100 ML IV SCH ×2 (14:34→22:03)
--- NOTE | 2017-04-25 15:32 | ASMTCMCOM ---
CM Note CM Note Notes: Patient had a L TKA today and is recovering well. Anticipate d/c in 2 days. Patient requesting home PT with [facility]. His PT eval today recommends the same. Referral sent, received, and accepted by [facility]. ZI to faciliate discharge. Date Signed: 04/25/2017 03:31 PM Electronically Signed By:Albina Jones RN
--- NOTE | 2017-04-25 20:16 | GOP ---
[f rep st] OPERATIVE REPORT DATE OF OPERATION: 04/25/2017 SURGEON: Landon Enrique MD ORACLE ANALYST: James Johansen AERODYNAMICS TEACHER, [facility] ANESTHESIA: Spinal with monitored anesthesia care. ANESTHESIOLOGIST: Alonso Meneses MD. PREOPERATIVE DIAGNOSIS: Osteoarthritis, left knee. POSTOPERATIVE DIAGNOSIS: Osteoarthritis, left knee. PROCEDURE PERFORMED: Left total knee arthroplasty. FINDINGS: INDICATIONS: Patient is a 67-year-old male who has had longstanding bilateral knee pain with varus d eformity. We brought him to the OR in November. After spinal anesthesia, he became bradycardic. We can celed the case. He has since had an extensive cardiac workup, was cleared for surgery, and he comes back today for left total knee arthroplasty. DESCRIPTION OF PROCEDURE: After appropriate informed consent was obtained, patient was taken to the operating room and placed supine on the operating table. Time-out was performed. Patient was identi fied. Correct site was identified and matched with radiographs in the room. He received 3 g of Ance f preoperatively. Dr. Meneses administered a spinal anesthetic. He was then positioned on the tabl e. All bony prominences were well padded. Left lower extremity was prepped and draped in the usual sterile fashion. I exsanguinated the limb, inflated the tourniquet to 250 mmHg. I made a standard m idline incision with medial parapatellar arthrotomy. The patella was everted. He had severe osteoar thritis throughout all 3 compartments of the knee with complete loss in the medial, lateral, and coleman llar compartments. Remaining ACL, PCL were incised. I flexed up the knee. Removed the medial and l ateral meniscus. Then used our drill, entered the femoral canal. We pinned our distal femoral cutti ng block in place and I resected 10 mm off the distal femur. I then used my tibial extramedullary gu pavel and resected 9 mm off the medial side. Using our spacer block, he had good extension, good media l and lateral stability. I then sized the femur to a size 6. Pinned our 4-in-1 cutting block in stephanie ce and made our distal femoral cuts. We then used our box cutting guide and made our distal femoral box cut using the reciprocating saw. We trialed the femur with good fit. He had good bone quality o n the femoral side. Using our tibia, we sized this to a size 6. Pinned it in place. Used our keel punch and punched our keel. We trialed both a 9 and an 11 poly. The 11 gave us a little better medi al and lateral stability, he still had full extension. I turned my attention to the patella. It karen sured 23 mm thick. I resected 10 mm off the patella. The bone was a little softer on the patella th an it was on the tibia and the femur, and decided to cement the patella. The knee was irrigated with pulsatile lavage. I then cemented the patella. Excess cement was removed. We held the patella in place with a patellar clamp. We tapped our tibia and femur in place. Once the patella had dried, I tapped my final [address]. The wound was irrigated a final time. Deep layers were closed with 0 Vicryl. I placed 5 mm of PRP beneath the extensor tendon repair, 5 above. I also placed 30 m L of 0.5% Marcaine with epinephrine into the knee. Superficial layers were closed with 2-0 Vicryl. Skin was closed with a V-Loc suture in a subcuticular fashion. Steri-Strips were applied to the skin . Sterile dressing was applied. SCDs were applied. Patient was awakened from anesthesia, taken to the recovery room in satisfactory condition. There were no immediate intraoperative complications. Giuseppe Johansen's assistance was required throughout the entire case. IMPLANTS USED: Chapin press-fit size 6 posterior stabilized femur, size 6 posterior stabilized tibi a, 11 mm poly, and a cemented 35 mm patella. TOTAL TOURNIQUET TIME: 68 minutes at 250 am mmHg. COMPLICATIONS: None. DRAINS: None. /[id number]/MODL
[2017-04-25] MEDS: ATORVASTATIN CALCIUM 10 MG TAB PO SCH (20:21)
[2017-04-25] MEDS: FAMOTIDINE 20 MG TAB PO SCH (20:21)
[2017-04-25] MEDS: SENNOSIDES/DOCUSATE SODIUM TAB PO SCH (20:21)
[2017-04-25] MEDS ORDERED: NON-FORMULARY NEW DRUG (Simvastatin [Zocor] 20 MG) PO SCH (21:00)
[2017-04-26] MEDS: oxyCODONE IR 5 MG TAB PO PRN ×6 (01:03→23:59)
[2017-04-26] MEDS: ACETAMINOPHEN 325 MG TAB PO SCH ×3 (01:03→12:50)
[2017-04-26 05:15] LABS: HEMATOCRIT 35.6 % (40.0-51.0); HEMOGLOBIN 12.1 g/dL (13.7-17.5)
[2017-04-26] MEDS: LEVOTHYROXINE 175 MCG TAB PO SCH (05:43)
[2017-04-26] MEDS ORDERED: METFORMIN HCL 1500 MG PO SCH (09:00)
[2017-04-26] MEDS: ALLOPURINOL 300 MG TAB PO SCH (09:03)
[2017-04-26] MEDS: FAMOTIDINE 20 MG TAB PO SCH ×2 (09:03→20:59)
[2017-04-26] MEDS: LISINOPRIL 5 MG TAB PO SCH (09:03)
[2017-04-26] MEDS: SENNOSIDES/DOCUSATE SODIUM TAB PO SCH ×2 (09:03→20:59)
[2017-04-26] MEDS: SPIRONOLACTONE 25 MG TAB PO SCH (09:04)
[2017-04-26] MEDS: KETOROLAC 30 MG/1 ML SDV IVP PRN (11:34)
[2017-04-26] MEDS: metFORMIN HCL 500 MG TAB PO SCH (12:49)
--- NOTE | 2017-04-26 13:08 | SOAPPROG ---
SOAP Progress Note Assessment/Plan: Assessment: POD#1 LT tKA Plan: 04/26/17 13:07 Xarelto held Today will reasses wound in am probable DC Tomorrow' cont PT/OT Subjective: feels good some bleeding from inferior aspect of incision Objective: DRessing changed, hematoma evacuated from inferior aspect of incision calf soft minimal swelling 5/5 ankle df/pf 2+ dp/tp pulses Vital Signs Temp Pulse Resp BP Pulse Ox 37.2 C 76 16 121/84 H 90 L 04/26/17 04:00 04/26/17 11:26 04/26/17 11:26 04/26/17 11:26 04/26/17 11:26 Laboratory Results 04/26/17 04:42 04/25/17 04/26/17 04/27/17 05:59 05:59 05:59 Intake Total 3480 Output Total 250 Balance 3230 ICD10 Worksheet Patient Problems: Problems Problem Status Onset Atrial flutter Acute Status post ablation of atrial flutter Acute
--- NOTE | 2017-04-26 13:11 | PDIAF ---
- Diagnosis Diagnosis: Osteoarthritis left knee Code Status: Full Code - Medication Management Discharge Medications: Medications to Continue on Transfer Aspirin [Aspirin 81mg (*)] 81 mg PO DAILY 11/26/16 [Last Taken 04/14/17] Herbals/Supplements -Info Only 1 ea PO DAILY 11/26/16 [Last Taken 04/14/17] Lisinopril [Zestril 5 mg (*)] 5 mg PO DAILY 11/26/16 [Last Taken 04/24/17 12:00] Simvastatin [Zocor] 20 mg PO HS 11/26/16 [Last Taken 04/24/17 21:00] metFORMIN HCL [Glucophage 1000 mg] 1,500 mg PO DAILY 11/26/16 [Last Taken 12:00] Allopurinol [Allopurinol 300 MG (RX)] 300 mg PO DAILY 01/21/17 [Last Taken 04/24 12:00] Levothyroxine [Synthroid 175 mcg (*)] 175 mcg PO DAILY06 01/21/17 [Last Taken 21:00] Rivaroxaban [Xarelto 10mg (*)] 20 mg PO DAILY 01/21/17 [Last Taken 04/15/17] Spironolactone [Aldactone 25 MG (*)] 25 mg PO DAILY 01/21/17 [Last Taken 12:00] Acetaminophen [Tylenol 325mg (*)] 650 mg PO BID 02/22/17 [Last Taken 02/28/17 21 :00] Acetaminophen [Tylenol 325mg (*)] 650 mg PO Q4HRS PRN tab 03/02/17 [Last Taken 04/24/17 21:00] Furosemide [Lasix] 40 mg PO MWF 04/22/17 [Last Taken 04/22/17] Oxycodone HCl 5 - 10 mg PO Q4HRS PRN 04/26/17 [Last Taken Unknown] Discharge Medications: Refer to the Discharge Home Medication list for PRN reason. PICC Care - Routine: N/A - Orders Services needed: Physical Therapy Diet Recommendation: no restrictions on diet Diet Texture: Regular Texture Diet Wound Care Instructions: Keep incision covered x 7 days Sutures/[place] Site: LT knee Activity/Weight Bearing Restrictions: WBAT - Follow Up Care Current Providers and Referrals: Casi Montano [Other] Landon Enrique MD [Medical Doctor] -
[2017-04-26] MEDS: RIVAROXABAN 10 MG TAB PO SCH (13:12)
[2017-04-26] MEDS ORDERED: ACETAMINOPHEN 325 MG TAB PO PRN (13:14)
[2017-04-26] MEDS: ATORVASTATIN CALCIUM 10 MG TAB PO SCH (20:59)
[2017-04-27] MEDS: oxyCODONE IR 5 MG TAB PO PRN ×2 (04:33→09:04)
[2017-04-27 05:07] LABS: HEMATOCRIT 36.9 % (40.0-51.0); HEMOGLOBIN 12.3 g/dL (13.7-17.5)
[2017-04-27] MEDS: LEVOTHYROXINE 175 MCG TAB PO SCH (06:13)
[2017-04-27 07:52] VITALS: BP 117/76; PULSE 74; RESP 14; TEMP 98.6; O2SAT 93
[2017-04-27] MEDS ORDERED: FUROSEMIDE 40 MG TAB PO SCH (08:00)
--- NOTE | 2017-04-27 08:29 | SOAPPROG ---
SOAP Progress Note Assessment/Plan: Assessment: POD#1 LT tKA Plan: 04/26/17 13:07 Xarelto held Today will reasses wound in am probable DC Tomorrow' cont PT/OT 04/27/17 08:28 DC Today if clears PT restart xarelto 04/28 f/u [facility] 04/29 Subjective: feeling good walked to BR this am Objective: dressing changed minimal oozing from inf edge calf soft 5/5 df/pf Vital Signs Temp Pulse Resp BP Pulse Ox 37 C 74 14 117/76 93 04/27/17 07:52 04/27/17 07:52 04/27/17 07:52 04/27/17 07:52 04/27/17 07:52 Laboratory Results 04/27/17 04:32 04/26/17 04/27/17 04/28/17 05:59 05:59 05:59 Intake Total 3480 1100 Output Total 250 2375 300 Balance 3230 -1275 -300 ICD10 Worksheet Patient Problems: Problems Problem Status Onset Atrial flutter Acute Status post ablation of atrial flutter Acute
[2017-04-27] MEDS: RIVAROXABAN 10 MG TAB PO SCH (08:53)
[2017-04-27] MEDS: FAMOTIDINE 20 MG TAB PO SCH (08:59)
[2017-04-27] MEDS: ALLOPURINOL 300 MG TAB PO SCH (08:59)
[2017-04-27] MEDS: SENNOSIDES/DOCUSATE SODIUM TAB PO SCH (08:59)
[2017-04-27] MEDS: LISINOPRIL 5 MG TAB PO SCH (08:59)
[2017-04-27] MEDS: SPIRONOLACTONE 25 MG TAB PO SCH (08:59)
--- NOTE | 2017-04-27 09:44 | ASMTCMCOM ---
CM Note CM Note Notes: Pt medically stable for d/c with [facility] PT. Orders sent in Allscripts. Date Signed: 04/27/2017 09:44 AM Electronically Signed By:HOOD Madrid
--- NOTE | 2017-04-27 12:19 | ASMTCMCOM ---
CM Note CM Note Notes: Pt medically stable for d/c with [facility] PT, orders sent in Allscripts. Date Signed: 04/27/2017 12:19 PM Electronically Signed By:HOOD Madrid
--- NOTE | 2017-04-27 12:19 | ASDISCHSUM ---
Discharge Information Plan Status:Home with Home Health Medically Cleared to Leave: Discharge Date:04/27/2017 11:21 AM D/C Disposition:Home Health Service ADT D/C Disposition:Home, Routine, Self-Care Projected Discharge Date:04/27/2017 11:00 AM Transportation at D/C: Discharge Delay Reason: Follow-Up Date:04/27/2017 11:00 AM Discharge Slot: Final Diagnosis: Placement Information Referral Type:*Home Health Care Services Referral ID:[id number] Provider Name:[facility] ([facility]) Address 1:[address] [address] Address 2: City:[place] Selection Factors: State:[place] Patient Contact Information Contact Name:SHERLYN Relationship: Address:[address] City:[place] Alternate Phone: State/Zip Code:[place] [address] Email: Financial Information Financial Class: Primary Plan Desc:MEDICARE INPATIENT Primary Plan Number:[id number] Secondary Plan Desc:FLAVIA SMALLS PPO Secondary Plan Number:[id number] Assessment Information [facility] Progress Note CM Note CM Note Notes: Patient had a L TKA today and is recovering well. Anticipate d/c in 2 days. Patient requesting home PT with [facility]. His PT hira today recommends the same. Referral sent, received, and accepted by [facility] to faciliate discharge. Date Signed: 04/25/2017 03:31 PM Electronically Signed By:Albina Jones RN [facility] CM Progress Note CM Note CM Note Notes: Pt medically stable for d/c with [facility] PT. Orders sent in Allscripts. Date Signed: 04/27/2017 09:44 AM Electronically Signed By:HOOD Madrid [facility] CM Progress Note CM Note CM Note Notes: Pt medically stable for d/c with [facility] PT, orders sent in Allscripts. Date Signed: 04/27/2017 12:19 PM Electronically Signed By:HOOD Madrid Intervention Information Intervention Type:*IM-Signed Date of Service:04/27/2017 09:51 AM Patient Type:Inpatient Staff Member:Estrella Vicente Hours: Discipline: Severity: Comment:
== END 2017-04-27 11:21 | disposition home health service (06) | DRG 470 ==
LOC: F3N 06:31
PROVIDERS: ADMIT Orthopaedic Surgery; ATTEND Orthopaedic Surgery
PROC: 0SRD0J9 Replacement of Left Knee Joint with Synthetic Substitute, Cemented, Open Approach (ICD-10-PCS; principal; 2017-04-25 08:15)
DX: M17.0 Bilateral primary osteoarthritis of knee (principal); E66.9 Obesity, unspecified; E11.9 Type 2 diabetes mellitus without complications; E78.00 Pure hypercholesterolemia, unspecified; Z79.01 Long term (current) use of anticoagulants
CPT/HCPCS: 97110-GP; 97116-GP; 97161-GP; 97530-GP; C1713; G8978-GP-CK; G8979-GP-CJ; G8980-GP-CJ; J0171; J0690; J1885; J2250; J2704; J2795; J3010

== ENCOUNTER 2017-08-08 07:33 | Inpatient (IN) | payer OTHER ==
--- NOTE | 2017-08-07 11:19 | GHP ---
[f rep st] PREOP HISTORY AND PHYSICAL DATE OF ADMISSION: 08/08/2017 DATE OF PLANNED PROCEDURE: 08/08/2017. PREOPERATIVE: Osteoarthritis, right knee. HISTORY OF PRESENT ILLNESS: The patient is a 67-year-old male who is status post a left total knee a rthroplasty last year. He has done well with that. The decision has been made to proceed with a rig ht total knee arthroplasty. PRIOR MEDICAL HISTORY: Gout, hypertension, diabetes, high cholesterol, sleep apnea. SOCIAL HISTORY: Does not smoke. Occasional alcohol use. . REVIEW OF SYSTEMS: No chest pain. No shortness of breath. He can walk a flight of stairs with only mild exertion. Otherwise, review of systems unremarkable. PHYSICAL EXAM: VITAL SIGNS: Today in the office, blood pressure is 142/84, heart rate is 86, respir atory rate is 16 on room air. HEENT: Normocephalic, atraumatic. Extraocular muscles intact. NECK: Supple. There is no lymphadenopathy. No JVD. CHEST: Clear to auscultation. CARDIOVASCULAR: Re gular rate and rhythm. ABDOMEN: Soft, nontender, nondistended. EXTREMITIES: He has varus deformit y of the right knee. He lacks about 10 degrees of full extension. Flexes to 120 degrees. The knee is stable to varus and valgus stress testing. 1+ Treasure with a firm endpoint. Negative posterior d rawer. Calf is soft. He has 1+ dorsalis pedis, posterior tibial pulses. 5/5 ankle dorsiflexion, pl isabella flexion, strength. IMAGING: X-ray images show a varus deformity with severe tricompartment degenerative joint disease o f the right knee. PLAN: I recommend proceeding with a total knee arthroplasty. He has done well with a press-fit impl ant on the other side. Risks and benefits, including blood clots, infection, wound healing problems, were all discussed. He has stopped his Xarelto per Cardiology 10 days before, since we had some ble eding postoperatively after the last surgery. He will restart it once we are satisfied with the woun d appearance, postoperative day 1 or 2. /[id number]/MODL
[~2017-08-08 07:33] MED LIST changes: -CALCIUM CHLORIDE 1 GM/10 ML INJ ONE; -THROMBIN (BOVINE) 5,000 UNIT VIAL TP ONE; -ceFAZolin 1 GM/5 ML SYR ONE; +ceFAZolin 3 GM in STERILE WATER INJ 30 ML IV ONE
[2017-08-08] MEDS ORDERED: LIDOCAINE 1% 2 ML INJ ONE (08:05)
[2017-08-08] MEDS ORDERED: LR 1,000 ML IV ONE (08:57)
[2017-08-08] MEDS ORDERED: LIDOCAINE 1% 2 ML INJ ID PRN (08:57)
--- NOTE | 2017-08-08 09:19 | PDANEPAE ---
ANE History of Present Illness OA here for R TKA ANE Past Medical History - Cardiovascular History Hx Hypertension: Yes Hx Arrhythmias: Yes Hx Chest Pain: No Hx Coronary Artery / Peripheral Vascular Disease: No Hx CHF / Valvular Disease: No Hx Palpitations: No Cardiovascular History Comment: A FLUTTER/ATRIAL TACH. high chol. Had an episode of SVT during sleep study about 10 years ago. Asympotmatic. No syncope/ pre-syncope. - Pulmonary History Hx COPD: No Hx Asthma/Reactive Airway Disease: No Hx Recent Upper Respiratory Infection: No Hx Oxygen in Use at Home: No Hx Sleep Apnea: Yes Sleep Apnea Screening Result - Last Documented: Positive Pulmonary History Comment: tonja positive uses cpap- instructed pt to bring cpap to hospital - Neurologic History Hx Cerebrovascular Accident: No Hx Seizures: No Hx Dementia: No - Endocrine History Hx Diabetes: Yes Endocrine History Comment: NIDDM. hypothyroidism - Renal History Hx Renal Disorders: Yes Renal History Comment: hx of kidney infections - Liver History Hx Hepatic Disorders: No - Neurological & Psychiatric Hx Hx Neurological and Psychiatric Disorders: No - Cancer History Hx Cancer: No - Congenital Disorder History Hx Congenital Disorders: No - GI History Hx Gastrointestinal Disorders: Yes Gastrointestinal History Comment: colonoscopies x2. OCC REFLUX - Other Health History Other Health History: OSTEOARTHRITIS. burn scar on right leg from hx of cellulitis - Chronic Pain History Chronic Pain: Yes (LOWER BACK,RT KNEE) - Surgical History Prior Surgeries: LT TOTAL KNEE 04/25/2017. ablation (Dr Ruelas). bilateral knee mcl tear repairs. colonoscopy x2. tonsillectomy as child ANE Review of Systems Review of Systems: - Exercise capacity Exercise capacity: >=4 METS ANE Patient History - Allergies Allergies/Adverse Reactions: No Known Allergies Allergy (Verified 04/13/17 15:31) - Home Medications Home Medications: Herbals/Supplements -Info Only 1 ea PO DAILY 11/26/16 [Last Taken 08/03/17] Lisinopril [Zestril 5 mg (*)] 5 mg PO DAILY 11/26/16 [Last Taken 08/07/17] Simvastatin [Zocor] 20 mg PO HS 11/26/16 [Last Taken 08/07/17] metFORMIN HCL [Glucophage 1000 mg] 1,500 mg PO DAILY 11/26/16 [Last Taken ] Allopurinol [Allopurinol 300 MG (RX)] 300 mg PO DAILY 01/21/17 [Last Taken 08/07] Levothyroxine [Synthroid 175 mcg (*)] 175 mcg PO DAILY06 01/21/17 [Last Taken ] Rivaroxaban [Xarelto 10mg (*)] 20 mg PO DAILY 01/21/17 [Last Taken 07/22/17] Spironolactone [Aldactone 25 MG (*)] 25 mg PO DAILY 01/21/17 [Last Taken ] Acetaminophen [Tylenol 325mg (*)] 650 mg PO BID 02/22/17 [Last Taken 08/07/17] Furosemide [Lasix 40 MG (*)] 40 mg PO MWF 04/22/17 [Last Taken 08/07/17] oxyCODONE IR [Oxycodone Ir (*)] 5 mg PO DAILY 07/19/17 [Last Taken Unknown] oxyCODONE IR [Oxycodone Ir (*)] 10 mg PO HS 07/19/17 [Last Taken 08/07/17] - NPO status NPO Since - Liquids (Date): 08/07/17 NPO Since - Liquids (Time): 23:30 NPO Since - Solids (Date): 08/07/17 NPO Since - Solids (Time): 18:30 - Anes Hx Anes Hx: no prior problems - Smoking Hx Smoking Status: Never smoked - Alcohol Use Alcohol Use: Occasionally - Family Anes Hx Family Anes Hx: none Family Hx Anesthesia Complications: none ANE Labs/Vital Signs - Vital Signs Blood Pressure: 93/75 Heart Rate: 63 Respiratory Rate: 16 O2 Sat (%): 93 Height: 177.8 cm Weight: 149.685 kg ANE Physical Exam - Airway Neck exam: FROM, increased neck circumference, short neck Mallampati Score: Class 2 Mouth exam: normal dental/mouth exam Mouth image: 1 - chipped - Pulmonary Pulmonary: no respiratory distress, clear to auscultation - Cardiovascular Cardiovascular: regular rate and rhythym, no murmur, rub, or gallop - ASA Status ASA Status: III ANE Anesthesia Plan Anesthesia Plan: GA with mask, spinal Regional Anesthesia: single shot NB, adductor canal FNB Total IV Anesthesia: Yes
[2017-08-08] MEDS ORDERED: MIDAZOLAM 2 MG/2 ML VIAL IVP ONE (09:21)
[2017-08-08] MEDS ORDERED: PROPOFOL/EMULSION 500 MG/50 ML BOTTLE IV ONE ×2 (09:28→10:42)
[2017-08-08] MEDS: ceFAZolin 1 GM/5 ML SYR ONE ×2 (09:55→10:22)
[2017-08-08] MEDS ORDERED: PHENYLEPHRINE HCL 100 MCG/ML SYR ONE (10:16)
[2017-08-08] MEDS ORDERED: THROMBIN (BOVINE) 5,000 UNIT VIAL TP ONE (10:25)
[2017-08-08] MEDS ORDERED: CALCIUM CHLORIDE 1 GM/10 ML INJ ONE (10:26)
[2017-08-08] MEDS ORDERED: clonIDINE 1 MG/10 ML VIAL EP ONE (10:29)
[2017-08-08] MEDS ORDERED: BUPIVACAINE/EPI 0.5% 30 ML SDV ONE (10:55)
[2017-08-08] MEDS ORDERED: PROMETHAZINE HCL 25 MG SUPPR PR PRN (11:29)
[2017-08-08] MEDS ORDERED: CYCLOBENZAPRINE 10 MG TAB PO PRN (11:29)
[2017-08-08] MEDS ORDERED: BISACODYL 10 MG SUPP PR PRN (11:29)
[2017-08-08] MEDS ORDERED: PROMETHAZINE HCL 25 MG/ML INJ IVP PRN (11:29)
[2017-08-08] MEDS ORDERED: ONDANSETRON 4 MG/2 ML VIAL IVP PRN ×2 (11:29→11:35)
[2017-08-08] MEDS ORDERED: ONDANSETRON DISINTEGRATING 4 MG TAB PO PRN (11:29)
[2017-08-08] MEDS ORDERED: LACTULOSE 20 GM/30 ML UDCUP PO PRN (11:29)
[2017-08-08] MEDS ORDERED: POLYETHYLENE GLYCOL 3350 17 GM PKT PO PRN (11:29)
[2017-08-08] MEDS ORDERED: MAGNESIUM HYDROXIDE 30 ML UDCUP PO PRN (11:29)
[2017-08-08] MEDS ORDERED: TEMAZEPAM 15 MG CAP PO PRN (11:29)
[2017-08-08] MEDS ORDERED: diphenhydrAMINE 25 MG CAP PO PRN (11:29)
[2017-08-08] MEDS ORDERED: METOCLOPRAMIDE 10 MG/2 ML VIAL IVP PRN (11:29)
[2017-08-08] MEDS ORDERED: DIPHENOXYLATE/ATROPINE LOMOTIL 1 TAB PO PRN (11:29)
--- NOTE | 2017-08-08 11:29 | POSTOPPROG ---
Post Op Note Date of Operation: 08/08/17 Surgeon: Landon Enrique Pondman: MIKE Blanca Anesthesiologist: Meredith Anesthesia: Spinal Pre-op Diagnosis: OA RT knee Post-op Diagnosis: same Procedure: RT TKA Inf/Abcess present in the surg proc area at time of surgery?: No EBL: 50-100 Complications: none
[2017-08-08] MEDS ORDERED: LR 1,000 ML IV SCH (11:30)
[2017-08-08] MEDS ORDERED: HYDROCODONE/APAP 5/325 TAB PO PRN (11:35)
[2017-08-08] MEDS ORDERED: NALOXONE HCL 0.4 MG/ML INJ IVP PRN (11:35)
[2017-08-08] MEDS ORDERED: ACETAMINOPHEN 500 MG TAB PO PRN (11:35)
[2017-08-08] MEDS ORDERED: OXYCODONE/APAP 5/325 TAB PO PRN (11:35)
[2017-08-08] MEDS ORDERED: HYDROmorphONE/DILAUDID 1 MG/ML INJ IVP PRN (11:35)
[2017-08-08] MEDS ORDERED: fentaNYL 100 MCG/2 ML INJ IVP PRN (11:35)
--- NOTE | 2017-08-08 11:37 | POSTANESTH ---
Post Anesthetic Evaluation Cardiovascular Status: Normal, Stable, Similar to Pre-Op Cond Respiratory Status: Normal, Stable, Similar to Pre-op Cond. Level of Consciousness/Mental Status: Can Participate in Eval, Alert and Oriented Pain Control: Adequate, Prn Tx Ordered Nausea/Vomiting Control: Adequate, Prn Tx Ordered Complications Possibly Related to Anesthesia: None Noted
[2017-08-08] MEDS: metFORMIN HCL 500 MG TAB PO SCH (13:18)
[2017-08-08] MEDS: ACETAMINOPHEN 325 MG TAB PO SCH ×3 (13:18→23:52)
[2017-08-08] MEDS ORDERED: ceFAZolin 2 GM/DEXTROSE 100 ML IV SCH (14:00)
[2017-08-08] MEDS: oxyCODONE IR 5 MG TAB PO PRN ×5 (14:46→23:57)
--- NOTE | 2017-08-08 15:56 | GOP ---
[f rep st] OPERATIVE REPORT DATE OF OPERATION: 08/08/2017 SURGEON: Landon Enrique MD SCHOOL PSYCHOLOGICAL EXAMINER: Mu Haney, PAC. ANESTHESIA: Spinal block with an adductor canal block, monitored anesthesia care. ANESTHESIOLOGIST: Dr. Harper. PREOPERATIVE DIAGNOSIS: Osteoarthritis, right knee. POSTOPERATIVE DIAGNOSIS: Osteoarthritis, right knee. PROCEDURE PERFORMED: Right total knee arthroplasty. FINDINGS: ESTIMATED BLOOD LOSS: Minimal. INDICATIONS: The patient is a 67-year-old male who has had ongoing worsening bilateral knee pain wit h varus deformity. We have done his left total knee; he has done quite well with that, and we return today for a right total knee. DESCRIPTION OF PROCEDURE: After appropriate informed consent was obtained, patient was taken to the operating room and placed supine on the operating table. Time-out was performed. Patient was identi fied. Correct site was identified, matched with the radiographs available in the room. He received 3 g of Ancef preoperatively. Following the spinal anesthetic administered by Dr. Harper, he was posit ioned on the operating room table. All bony prominences were well padded. Right lower extremity was prepped and draped in usual sterile fashion. I exsanguinated the limb, inflated the tourniquet to 2 50 mmHg. Total tourniquet time was 72 minutes. I made a standard midline incision with a medial parapatellar arthrotomy, everted the knee. He had f ull-thickness cartilage loss in all 3 compartments of the knee, worse in the medial compartment. Ost eophytes and remaining medial and lateral meniscus were removed. ACL, PCL were also excised. I then flexed the knee up and, using the drill, entered the femoral canal. We resected 10 mm off the dista l femur. I then turned my attention to the tibia and, using the tibial extramedullary guide, resecte d 7 mm off the medial side. Using our spacer block, he had good extension, good medial and lateral s tability. I did do a little bit of a medial release. He was just slightly tighter on that side. We then sized the femur to a size 6, pinned our 4-in-[address] and made our distal fem oral cuts, pinned our box cutting guide in place, drilled our lug holes and made our box cut. He had good bone quality. The femoral trial component fit on nicely. The tibia was sized a size 7 tibia. He did not have quite enough AP diameter for that, so we stayed with a 6, pinned that in place when I was satisfied with the rotation, and used our keel punch. We trialed a 9 and 11 poly. The 11 poly gave us a little better stability. He still had good extension with that. We then removed the trials, and I pinned our tibial cutting block in place and drilled our 4 relief h oles. We then turned our attention to the patella and resected 10 mm off the patella (that sized to a size 35), drilled our lug holes. We irrigated the wound with pulsatile lavage. I then press-fit o ur tibia, followed by our femur. Our 11 poly was tapped into place and the patella. The wound was irrigated a final time. We closed the deep layers with 0 Vicryl. The superficial laye rs were closed with 2-0 Vicryl. I instilled 10 mL of PRP onto the cut bone end surfaces and 30 mL of 0.5% Marcaine with epinephrine into the knee joint. The skin was closed with jyoti. Sterile dres sing was applied. Patient was awakened from anesthesia, taken to the recovery room in satisfactory c ondition. There were no immediate intraoperative complications. Bebeto Haney' assistance was required throughout the entire case. TOTAL TOURNIQUET TIME: 72 minutes at 250 mmHg. IMPLANTS USED: A Chapin press-fit size 6 posterior stabilized femur, size 6 tibia, and a 35 mm pres s-fit patella. COMPLICATIONS: None. DRAINS: None. /[id number]/MODL
[2017-08-08] MEDS: ceFAZolin 2 GM/SWFI 2 GM/20 ML SYR IVP SCH (18:10)
[2017-08-08] MEDS ORDERED: NON-FORMULARY NEW DRUG (Simvastatin [Zocor] 20 MG) PO SCH (21:00)
[2017-08-08] MEDS: FAMOTIDINE 20 MG TAB PO SCH (21:31)
[2017-08-08] MEDS: ATORVASTATIN CALCIUM 10 MG TAB PO SCH (21:31)
[2017-08-08] MEDS: SENNOSIDES/DOCUSATE SODIUM TAB PO SCH (21:32)
[2017-08-09] MEDS: ceFAZolin 2 GM/SWFI 2 GM/20 ML SYR IVP SCH (02:20)
[2017-08-09] MEDS: ACETAMINOPHEN 325 MG TAB PO SCH ×4 (05:41→23:42)
[2017-08-09] MEDS: LEVOTHYROXINE 175 MCG TAB PO SCH (05:41)
[2017-08-09] MEDS: oxyCODONE IR 5 MG TAB PO PRN ×5 (05:41→22:05)
[2017-08-09] MEDS: SENNOSIDES/DOCUSATE SODIUM TAB PO SCH ×2 (08:39→22:05)
[2017-08-09] MEDS: SPIRONOLACTONE 25 MG TAB PO SCH (08:39)
[2017-08-09] MEDS: metFORMIN HCL 500 MG TAB PO SCH (08:40)
[2017-08-09] MEDS: LISINOPRIL 5 MG TAB PO SCH (08:40)
[2017-08-09] MEDS: ALLOPURINOL 300 MG TAB PO SCH (08:40)
[2017-08-09] MEDS: FAMOTIDINE 20 MG TAB PO SCH ×2 (08:40→22:06)
[2017-08-09] MEDS ORDERED: METFORMIN HCL 1500 MG PO SCH (09:00)
--- NOTE | 2017-08-09 11:06 | SOAPPROG ---
SOAP Progress Note Assessment/Plan: Assessment: POD#1 RT TKA Plan: 08/09/17 11:02 will restart xarelto 20 mg tomorrow if wound stays dry cont PT/OT possible dc tomorrow Subjective: a little more pain with this knee Objective: DRessing c/d/i calf soft 5/5 df/pf Vital Signs Temp Pulse Resp BP Pulse Ox 36.8 C 85 19 134/91 H 93 08/09/17 08:00 08/09/17 08:00 08/09/17 08:00 08/09/17 08:00 08/09/17 08:00 Laboratory Results 08/09/17 04:09 08/08/17 08/09/17 08/10/17 05:59 05:59 05:59 Intake Total 1800 Output Total 1000 Balance 800 ICD10 Worksheet Patient Problems: Problems Problem Status Onset Atrial flutter Acute OA (osteoarthritis) of knee Acute Osteoarthritis of left knee Acute Status post ablation of atrial flutter Acute
--- NOTE | 2017-08-09 14:37 | ASMTCMCOM ---
CM Note CM Note Notes: Patient is POD #1 TKA. PT is recommending home care. Patient and request services through [facility], who they have used in the past. Referral sent to [facility]. Date Signed: 08/09/2017 02:36 PM Electronically Signed By:Albina Jones RN
[2017-08-09] MEDS: ATORVASTATIN CALCIUM 10 MG TAB PO SCH (22:05)
[2017-08-10] MEDS: oxyCODONE IR 5 MG TAB PO PRN ×7 (01:47→23:23)
[2017-08-10] MEDS: ACETAMINOPHEN 325 MG TAB PO SCH ×4 (05:03→23:22)
[2017-08-10] MEDS: LEVOTHYROXINE 175 MCG TAB PO SCH (05:03)
--- NOTE | 2017-08-10 06:55 | SOAPPROG ---
SOAP Progress Note Assessment/Plan: Assessment: POD#1 RT TKA Plan: 08/09/17 11:02 will restart xarelto 20 mg tomorrow if wound stays dry cont PT/OT possible dc tomorrow 08/10/17 06:54 POD#2 RT TKA dc home today if clears PT restart xarelto 20 mg f/u [facility] 2 weeeks Subjective: less pain o/n Objective: dressing c/d/i calf soft 5/5 df/pf Vital Signs Temp Pulse Resp BP Pulse Ox 37.9 C 80 16 132/88 H 95 08/09/17 23:47 08/10/17 00:03 08/10/17 00:03 08/09/17 23:47 08/10/17 00:03 Laboratory Results 08/10/17 05:35 08/09/17 08/10/17 08/11/17 05:59 05:59 05:59 Intake Total 1800 1800 Output Total 1000 1150 Balance 800 650 ICD10 Worksheet Patient Problems: Problems Problem Status Onset Atrial flutter Acute OA (osteoarthritis) of knee Acute Osteoarthritis of left knee Acute Status post ablation of atrial flutter Acute
[2017-08-10] MEDS ORDERED: FUROSEMIDE 40 MG TAB PO SCH (08:00)
--- NOTE | 2017-08-10 08:40 | PDMN ---
Medical Necessity Medical necessity: change to IP; los>2mn s/p R TKA for continued wound monitoring r/t restart of Xarelto, increased knee pain limiting functional mobility, requiring ongoing PT/OT prior to d/c; per order and progress note 08/09
[2017-08-10] MEDS: RIVAROXABAN 20 MG TAB PO SCH (08:46)
[2017-08-10] MEDS: metFORMIN HCL 500 MG TAB PO SCH (08:46)
[2017-08-10] MEDS: ALLOPURINOL 300 MG TAB PO SCH (08:46)
[2017-08-10] MEDS: SENNOSIDES/DOCUSATE SODIUM TAB PO SCH ×2 (08:47→23:49)
[2017-08-10] MEDS: FAMOTIDINE 20 MG TAB PO SCH ×2 (08:47→20:19)
[2017-08-10] MEDS: SPIRONOLACTONE 25 MG TAB PO SCH (08:48)
[2017-08-10] MEDS: LISINOPRIL 5 MG TAB PO SCH (08:53)
--- NOTE | 2017-08-10 10:47 | PDIAF ---
- Diagnosis Diagnosis: s/p RT TKA Code Status: Full Code - Medication Management Discharge Medications: Medications to Continue on Transfer Herbals/Supplements -Info Only 1 ea PO DAILY 11/26/16 [Last Taken 08/03/17] Lisinopril [Zestril 5 mg (*)] 5 mg PO DAILY 11/26/16 [Last Taken 08/07/17] Simvastatin [Zocor] 20 mg PO HS 11/26/16 [Last Taken 08/07/17] metFORMIN HCL [Glucophage 1000 mg] 1,500 mg PO DAILY 11/26/16 [Last Taken ] Allopurinol [Allopurinol 300 MG (RX)] 300 mg PO DAILY 01/21/17 [Last Taken 08/07] Levothyroxine [Synthroid 175 mcg (*)] 175 mcg PO DAILY06 01/21/17 [Last Taken ] Rivaroxaban [Xarelto 10mg (*)] 20 mg PO DAILY 01/21/17 [Last Taken 07/22/17] Spironolactone [Aldactone 25 MG (*)] 25 mg PO DAILY 01/21/17 [Last Taken ] Acetaminophen [Tylenol 325mg (*)] 650 mg PO BID 02/22/17 [Last Taken 08/07/17] Furosemide [Lasix 40 MG (*)] 40 mg PO MWF 04/22/17 [Last Taken 08/07/17] oxyCODONE IR [Oxycodone Ir (*)] 10 mg PO HS #60 tab 08/10/17 [Last Taken Unknown ] Fpc Antibiotics: no Discharge Medications: Refer to the Discharge Home Medication list for PRN reason. PICC Care - Routine: N/A - Orders Services needed: Home Ret[facility] Care Face to Face: I certify that this patient was under my care and that I had the required plic-ig-ebfe encounter meeting the encounter requirements on the discharge day. My findings support the fact that the patient is homebound as defined in Home Care Face to Face Continued: CMS Chapter 7 Medicare Benefits Manual 30.1.1 , The condition of the patient is such that there exists a normal inability to leave home and consequently, leaving home would require a considerable and taxing effort. Diet Recommendation: no restrictions on diet Diet Texture: Regular Texture Diet Martinez Stockings Discontinue Date: no Wound Care Instructions: may remove dressing Tuesday shower Sutures/Jenn Site: rt knee MD will remove 1st PO visit Activity/Weight Bearing Restrictions: WBAT - Follow Up Care Current Providers and Referrals: HEIDI HYATT [Other]
[2017-08-10] MEDS: ATORVASTATIN CALCIUM 10 MG TAB PO SCH (20:19)
[2017-08-11 04:57] VITALS: TEMP 98.8
[2017-08-11] MEDS: LEVOTHYROXINE 175 MCG TAB PO SCH (05:45)
[2017-08-11] MEDS: ACETAMINOPHEN 325 MG TAB PO SCH (05:45)
[2017-08-11] MEDS: oxyCODONE IR 5 MG TAB PO PRN ×2 (05:45→09:59)
[2017-08-11 08:07] VITALS: BP 129/79; RESP 18
--- NOTE | 2017-08-11 08:41 | SOAPPROG ---
SONATASHA Progress Note Assessment/Plan: Assessment: POD#1 RT TKA Plan: 08/09/17 11:02 will restart xarelto 20 mg tomorrow if wound stays dry cont PT/OT possible dc tomorrow 08/10/17 06:54 POD#2 RT TKA dc home today if clears PT restart xarelto 20 mg f/u [facility] 2 weeeks 08/11/17 08:40 POD#3 DC home when clears PT Subjective: doing better working with PT Objective: dressing c/d/i some numbness lateral knee df/pf 5/5 Vital Signs Temp Pulse Resp BP Pulse Ox 37.1 C 76 18 129/79 H 91 L 08/11/17 08:00 08/11/17 08:00 08/11/17 08:00 08/11/17 08:00 08/11/17 08:00 Laboratory Results 08/10/17 05:35 08/10/17 08/11/17 08/12/17 05:59 05:59 05:59 Intake Total 1800 500 Output Total 1150 900 Balance 650 -400 ICD10 Worksheet Patient Problems: Problems Problem Status Onset Atrial flutter Acute OA (osteoarthritis) of knee Acute Osteoarthritis of left knee Acute Status post ablation of atrial flutter Acute
[2017-08-11] MEDS: metFORMIN HCL 500 MG TAB PO SCH (09:55)
[2017-08-11] MEDS: SPIRONOLACTONE 25 MG TAB PO SCH (09:56)
[2017-08-11] MEDS: LISINOPRIL 5 MG TAB PO SCH (09:56)
[2017-08-11] MEDS: ALLOPURINOL 300 MG TAB PO SCH (09:56)
[2017-08-11] MEDS: RIVAROXABAN 20 MG TAB PO SCH (09:57)
[2017-08-11] MEDS: SENNOSIDES/DOCUSATE SODIUM TAB PO SCH (09:57)
[2017-08-11] MEDS: FAMOTIDINE 20 MG TAB PO SCH (09:57)
--- NOTE | 2017-08-11 11:06 | ASMTCMCOM ---
CM Note CM Note Notes: Pt medically stable for d/c with [facility] PT. Orders sent in Allscripts. Date Signed: 08/11/2017 11:05 AM Electronically Signed By:HOOD Madrid
--- NOTE | 2017-08-11 11:07 | ASDISCHSUM ---
Discharge Information Plan Status:Home with Home Health Medically Cleared to Leave: Discharge Date: D/C Disposition:[facility] Health Service [facility] D/C Disposition:[id number] Projected Discharge Date:08/10/2017 11:00 AM Transportation at D/C: Discharge Delay Reason: Follow-Up Date:08/10/2017 11:00 AM Discharge Slot: Final Diagnosis: Placement Information Referral Type:*Home Health Care Services Referral ID:[id number] Provider Name:[facility] ENG) Address 1:[address] [facility] Address 2: [address] City:[place] Selection Factors: State:[place] Patient Contact Information Contact Name:SHERLYN Relationship: [address] City:[place] Alternate Phone: State/Zip Code:[place] [address] Email: Financial Information Financial Class:Medicare Primary Plan Desc:MEDICARE INPATIENT Primary Plan Number:[id number] Secondary Plan Desc:FLAVIA PPO Secondary Plan Number:[id number] Assessment Information [facility] CM Progress Note CM Note CM Note Notes: Patient is POD #1 TKA. PT is recommending home care. Patient and request services through [facility], who they have used in the past. Referral sent to [facility]. Date Signed: 08/09/2017 02:36 PM Electronically Signed By:Albina Jones RN [facility] CM Progress Note CM Note CM Note Notes: Pt medically stable for d/c with [facility] PT. Orders sent in Allscripts. Date Signed: 08/11/2017 11:05 AM Electronically Signed By:HOOD Madrid Intervention Information Intervention Type:*Incorrect Registration Date of Service:08/08/2017 02:36 PM Patient Type:Inpatient Staff Member:RANDY Lewis Susan Hours: Discipline: Severity: Comment: Intervention Type:*MCLEAN-Signed Date of Service:08/09/2017 09:51 AM Patient Type:Observation Staff Member:Estrella Vicente Hours: Discipline: Severity: Comment:
[2017-08-11 13:35] VITALS: PULSE 93; O2SAT 92
== END 2017-08-11 11:48 | disposition home health service (06) | DRG 470 ==
LOC: F3N 07:33 → INTOOBSV 07:33 → F3N 12:44 → OBSVTOIN 08-09 17:50
PROVIDERS: ADMIT Orthopaedic Surgery; ATTEND Orthopaedic Surgery
PROC: 0SRC0JA Replacement of Right Knee Joint with Synthetic Substitute, Uncemented, Open Approach (ICD-10-PCS; principal; 2017-08-09)
DX: M17.11 Unilateral primary osteoarthritis, right knee (principal); Z96.652 Presence of left artificial knee joint; I10 Essential (primary) hypertension; M10.9 Gout, unspecified; E11.9 Type 2 diabetes mellitus without complications; E78.00 Pure hypercholesterolemia, unspecified; G47.30 Sleep apnea, unspecified
CPT/HCPCS: 97110-GP; 97116-GP; 97161-GP; 97165-GO; 97530-GP; 97535-GO; G8978-GP-CI; G8978-GP-CM; G8979-GP-CI; G8980-GP-CI; G8987-GO-CJ; G8988-GO-CI; G8989-GO-CI; J0690; J0735; J2250; J2270; J2370; J2704

== ENCOUNTER → 2018-06-09 | Outpatient (CLI) | payer OTHER | LOC: BHLMT 09:00 | PROVIDERS: ATTEND Nurse Practitioner Family | DX: I48.92 Unspecified atrial flutter (principal); I48.0 Paroxysmal atrial fibrillation | CPT/HCPCS: 93005-PO ==